=== PATIENT | female | born 1965 | race Caucasian/White ===

== ENCOUNTER 2023-11-29 12:25 | Inpatient (IN) ==
[2023-11-29] MEDS: SODIUM CHLORIDE 0.9% 1,000 ML IV ONE (12:43)
[2023-11-29 13:15] LABS: Basophils # (auto) 0.04 K/uL (0.00-0.20); Basophils % (auto) 0.3 %; Eosinophils # (auto) 0.09 K/uL (0.00-0.50); Eosinophils % (auto) 0.8 %; Hematocrit (blood only) 47.3 % (37.0-47.0); Hemoglobin 16.3 g/dl (12.0-16.0); Immature Granulocytes # (auto) 0.05 K/uL (0.01-0.20); Immature Granulocytes % (auto) 0.4 %; Lymphocytes # (auto) 3.29 K/uL (1.20-3.40); Mean Corpuscular Hemoglobin 29.2 pg (25.0-34.0); Mean Corpuscular Hgb Conc 34.5 g/dL (32.0-36.0); Mean Corpuscular Volume 84.6 fL (80.0-100.0); Mean Platelet Volume 10.1 fL (9.4-12.4); Monocytes % (auto) 7.7 %; Neutrophils # (auto) 7.38 K/uL (1.40-6.50); Neutrophils % (auto) 62.8 %; Platelet Count 285 K/uL (130-400); RDW Coefficient of Variation 13.6 % (11.5-14.5); RDW Standard Deviation 41.6 fL (36.4-46.3); Red Blood Count 5.59 M/uL (4.20-5.40); White Blood Count 11.75 K/ul (4.8-10.8)
--- NOTE | 2023-11-29 13:20 | Emergency Department Note ---
Impression & Plan Pericarditis, Elevated troponin, Bronchitis, Chest pain ED Provider Note NAME: DAIANA LEAL AGE: 58 SEX: F : 1965 ARRIVES VIA: Ambulance INFORMANT: Patient ED PROVIDER(S): Meek Woody MD CHIEF COMPLAINT: Chest pain, cough PLAN: Disposition: Admit MEDICAL DECISION MAKING: The patient is a pleasant 58-year-old woman who presents to the emergency department via EMS for evaluation of chest pain in the setting of having cough, congestion began on Tuesday. 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 She denies any known sick contacts but admits she is at risk for exposures. She reports feeling nasal congestion. She reports constant chest pain that began this morning when she was at work when she was sitting. She reports that it has felt like a burning and is worse when she lay flat. She does report some worsening with cough and breathing. Does report feeling component of pain last night when she was sleeping where she felt burning and fullness in her throat which she suspected was acid reflux. She denies any personal or family history of blood clots. She denies any pattern of exertional chest pain prior to her symptoms. Patient did receive 324 mg of aspirin by EMS prior to arrival. On my evaluation the patient is uncomfortable but no acute distress, afebrile with blood pressure 170/100 and vital signs otherwise stable. She appears clinically dry. She has wheezes and rhonchi of bilateral lung rene with normal respiratory effort. She has component of reproducible chest discomfort on palpation though she feels this is different from the pain that brought her in. EKG without overt acute ischemia. CXR negative for acute cardiopulmonary process per my personal preliminary review/interpretation. WBC 11.7 K with mild neutrophilia but no left shift, nonspecific. Hemoglobin and hematocrit are 16.3/47.3 possibly reflecting component of hemoconcentration/dehydration. Chemistry without metabolic acidosis. BUN/creatinine 30 suggestive of dehydration. Initial high-sensitivity troponin was elevated at 824 with delta 2-hour high-sensitivity troponin 912, nonspecific. Lipase not elevated. Respiratory viral consuls BioFire was negative. CTA of the chest was performed and was negative for PE or focal consolidation. There are borderline enlarged mediastinal lymph nodes measuring 10 mm in the paratracheal distribution. There is no pericardial effusion. Upon evaluation the patient did feel significant improved following IV fluid hydration, IV APAP, Toradol, guaifenesin, Solu-Medrol and DuoNeb. She reported complete resolution of her pain. The nature of her symptoms occur in setting of respiratory illness/bronchitis suspect troponin elevation likely related to pericarditis/myocarditis. Patient was given full dose aspirin by EMS prior to arrival. Given the patient reports resolution of her pain we will defer heparin at this time. Case discussed with Rick Decker PAC, with Dr. Sergio Cabrera hospitalist who will evaluate the patient for admission. Further management per admitting team. Triage Nursing notes reviewed and agree them. Prior/external medical records reviewed Vital Signs: reviewed Differential diagnosis: Cardiac ischemia, aortic dissection, pulmonary embolism, pneumothorax, pneumonia, pericarditis, myocarditis, esophageal rupture, GERD, cholecystitis, pancreatitis, musculoskeletal, as well as other pathologies. ER treatment provided: See below. Diagnostics interpreted by me: ECG: Normal sinus rhythm with sinus arrhythmia, 78 bpm, no ectopy, no overt ST elevation or depression, QTc 440, QRS 76. Cardiac Monitoring: An order for continuous cardiac monitoring was placed and demonstrated Normal sinus rhythm with sinus arrhythmia, 78 bpm, no ectopy. Laboratory studies: See below Imaging studies: See below Consultation(s): Rick Decker, with Dr. Sergio gomez HPI: The patient is a pleasant 58-year-old woman who presents to the emergency department via EMS for evaluation of chest pain in the setting of having cough, congestion began on Tuesday. 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 She denies any known sick contacts but admits she is at risk for exposures. She reports feeling nasal congestion. She reports constant chest pain that began this morning when she was at work when she was sitting. She reports that it has felt like a burning and is worse when she lay flat. She does report some worsening with cough and breathing. Does report feeling component of pain last night when she was sleeping where she felt burning and fullness in her throat which she suspected was acid reflux. She denies any personal or family history of blood clots. She denies any pattern of exertional chest pain prior to her symptoms. Patient did receive 324 mg of aspirin by EMS prior to arrival. ROS: See above HPI for pertinent positives & negatives. A total of 10 systems reviewed and were otherwise negative. VITALS:See Below PHYSICAL EXAMINATION: GENERAL: Awake, alert, fatigued-appearing, in no distress, BMI 33.5. HENT: Normocephalic, atraumatic. Oropharynx with dry mucous membranes and otherwise unremarkable. . EYES: Normal conjunctiva. Sclera non-icteric. NECK: Supple. No nuchal rigidity. FROM. No JVD. RESPIRATORY: Wheezes and rhonchi of bilateral lung rene with normal respiratory effort. CARDIAC: Regular rate, normal rhythm. Extremities warm and well perfused. Pulses equal. ABDOMEN: Soft, non-distended. No tenderness to palpation. No rebound or guarding. No masses. MUSCULOSKELETAL: Component of reproducible chest discomfort on palpation though she feels this is different from the pain that brought her in. The back is symmetrical on inspection without obvious abnormality. There is no CVA tenderness to palpation. No joint edema. LOWER EXTREMITIES: Calves are equal size bilaterally and non-tender. No edema. No discoloration. NEURO: Normal sensorium. No sensory or motor deficits noted. SKIN: No rash or jaundice noted. Critical Care: I have personally spent greater than 35 minutes of critical care time in the direct management of this patient. This includes bedside care, interpretation of diagnostic studies, and testing, discussion with consultants, patient, and family members, and other required patient management activities. This 35 minutes is in excess of all separately billable procedures. Meek Woody MD Past Med/Surg History Problem List (Updated 11/29/23 @ 23:47 by Meek Woody MD) Chest pain (Acute) Bronchitis (Acute) NSTEMI (non-ST elevated myocardial infarction) Elevated troponin (Acute) Pericarditis (Acute) Tobacco use disorder Hyperlipidemia Surgical History H/O foot surgery Family History Other Breast cancer Heart disease Ovarian cancer Social History Smoking Status: Current every day smoker Tobacco Type: Cigarettes packs per day: 1; Do You Dip or Chew Tobacco: No; Hx Alcohol Use: Yes Alcohol type: beer Hx Substance Use: Yes Last Used Substance: Days (ago) Preferred Language: Tajik Communication Ability: Effective Election Watcher Required: No Beliefs That Will Affect Care: None Current Living Situation: Significant Other Current Living Situation Comment: with Mike Solorzano Other Information That Helps Us Care for You: No Feels Safe at Home: Yes Safety Concerns: Feels Safe At This Time Assistive Devices: None Allergies Allergies Allergy/AdvReac Type Severity Reaction Status Date / Time No Known Allergies Allergy Verified 11/29/23 15:19 Home Meds Home Medications Medication Instructions Recorded Confirmed acetaminophen 500 mg tablet 1,000 mg PO Q6H PRN Pain 11/29/23 11/29/23 (Tylenol Extra Strength) ibuprofen 200 mg tablet 600 - 800 mg PO Q6H PRN Pain 11/29/23 11/29/23 naproxen sodium 220 mg tablet 220 mg PO Q8H PRN Pain 11/29/23 11/29/23 (Aleve) tizanidine 2 mg tablet 2 mg PO DIRECTED PRN MUSCLE 11/29/23 11/29/23 SPASMS Results & Data (ED) Vital Signs Vital Signs - 24 hr 11/29/23 12:35 11/29/23 13:08 11/29/23 13:08 Temperature 36.8 C Temperature Source Oral Pulse Rate 67 80 Pulse Rate [Apical] 87 Pulse Rate from SpO2 Sensor Respiratory Rate 17 23 24 Respiratory Effort / Characteristics Non-Labored Spontaneous Spontaneous Respiratory Depth Normal Normal Respiratory Pattern Regular Blood Pressure 171/106 H Blood Pressure [Right Arm] 165/94 H Blood Pressure Mean 127 Blood Pressure Mean [Right Arm] 117 Blood Pressure Position [Right Arm] Semi-fowlers Pulse Oximetry 98 98 99 Oxygen Delivery Method Room Air Room Air Room Air Sepsis Recent Fever Within 48 Hours No Sepsis New/Unexplained Change in Mental Status N/A Sepsis Action Taken by Nursing No Action Required 11/29/23 13:10 11/29/23 13:11 11/29/23 13:45 Temperature Temperature Source Pulse Rate 82 78 Pulse Rate [Apical] Pulse Rate from SpO2 Sensor Respiratory Rate 18 Respiratory Effort / Characteristics Respiratory Depth Respiratory Pattern Blood Pressure 186/120 H Blood Pressure [Right Arm] Blood Pressure Mean 139 Blood Pressure Mean [Right Arm] Blood Pressure Position [Right Arm] Pulse Oximetry Oxygen Delivery Method Sepsis Recent Fever Within 48 Hours Sepsis New/Unexplained Change in Mental Status Sepsis Action Taken by Nursing 11/29/23 14:14 11/29/23 14:21 11/29/23 14:33 Temperature Temperature Source Pulse Rate 85 79 Pulse Rate [Apical] 76 Pulse Rate from SpO2 Sensor 80 78 Respiratory Rate 17 24 17 Respiratory Effort / Characteristics Non-Labored Spontaneous Respiratory Depth Normal Respiratory Pattern Regular Blood Pressure Blood Pressure [Right Arm] 168/99 H Blood Pressure Mean Blood Pressure Mean [Right Arm] 122 Blood Pressure Position [Right Arm] Semi-fowlers Pulse Oximetry 95 95 95 Oxygen Delivery Method Room Air Sepsis Recent Fever Within 48 Hours Sepsis New/Unexplained Change in Mental Status Sepsis Action Taken by Nursing 11/29/23 15:09 11/29/23 15:33 11/29/23 16:06 Temperature Temperature Source Pulse Rate 73 71 72 Pulse Rate [Apical] Pulse Rate from SpO2 Sensor 70 73 75 Respiratory Rate 15 20 22 Respiratory Effort / Characteristics Respiratory Depth Respiratory Pattern Blood Pressure Blood Pressure [Right Arm] Blood Pressure Mean Blood Pressure Mean [Right Arm] Blood Pressure Position [Right Arm] Pulse Oximetry 95 95 94 Oxygen Delivery Method Sepsis Recent Fever Within 48 Hours Sepsis New/Unexplained Change in Mental Status Sepsis Action Taken by Nursing 11/29/23 16:30 11/29/23 17:03 Temperature Temperature Source Pulse Rate 81 83 Pulse Rate [Apical] Pulse Rate from SpO2 Sensor 84 84 Respiratory Rate 16 19 Respiratory Effort / Characteristics Respiratory Depth Respiratory Pattern Blood Pressure Blood Pressure [Right Arm] Blood Pressure Mean Blood Pressure Mean [Right Arm] Blood Pressure Position [Right Arm] Pulse Oximetry 95 95 Oxygen Delivery Method Sepsis Recent Fever Within 48 Hours Sepsis New/Unexplained Change in Mental Status Sepsis Action Taken by Nursing Laboratory Data Attestation: I reviewed the patient's lab results. 11/29/23 12:40 11/29/23 12:40 Lab Results 11/29/23 11/29/23 11/29/23 Range/Units 12:40 12:45 12:45 WBC 11.75 H (4.8-10.8) K/ul RBC 5.59 H (4.20-5.40) M/uL Hgb 16.3 H (12.0-16.0) g/dl Hct 47.3 H (37.0-47.0) % MCV 84.6 (80.0-100.0) fL MCH 29.2 (25.0-34.0) pg MCHC 34.5 (32.0-36.0) g/dL RDW Std Deviation 41.6 (36.4-46.3) fL RDW Coeff of Dontae 13.6 (11.5-14.5) % Plt Count 285 (130-400) K/uL MPV 10.1 (9.4-12.4) fL Immature Gran % (Auto) 0.4 % Neut % (Auto) 62.8 % Lymph % (Auto) 28.0 % Gilmer % (Auto) 7.7 % Eos % (Auto) 0.8 % Baso % (Auto) 0.3 % Neut # (Auto) 7.38 H (1.40-6.50) K/uL Lymph # (Auto) 3.29 (1.20-3.40) K/uL Gilmer # (Auto) 0.90 H (0.11-0.59) K/uL Eos # (Auto) 0.09 (0.00-0.50) K/uL Baso # (Auto) 0.04 (0.00-0.20) K/uL Immature Gran # (Auto) 0.05 (0.01-0.20) K/uL ESR 33 H (0-30) mm/hr PT 10.8 (9.0-12.0) Seconds INR 1.0 (0.9-1.1) Sodium 137 (136-145) mmol/L Potassium 3.6 (3.5-5.1) mmol/L Chloride 102 (98-107) mmol/L Carbon Dioxide 27 (21-32) mmol/L Anion Gap 8 (3-11) BUN 16 (6-23) mg/dl Creatinine 0.52 L (0.6-1.2) mg/dl Est Cr Clr Drug Dosing 130.9 ml/min Est GFR ( Amer) 123.8 ml/min Est GFR (Non-Af Amer) 106.8 ml/min BUN/Creatinine Ratio 30.8 H (10-20) Glucose 98 (70-99(Fasting)) mg/dl Calcium 9.7 (8.6-10.3) mg/dl Magnesium 2.2 (1.7-2.4) mg/dl Total Bilirubin 0.6 (0.2-1.0) mg/dl AST 22 (13-39) U/L ALT 22 (7-52) U/L Alkaline Phosphatase 69 (34-104) U/L Troponin I High Sens 824.7 H* (0-14) pg/ml C-Reactive Protein (0-0.5) mg/dl Total Protein 7.6 (6.0-8.3) gm/dl Albumin 4.5 (3.4-5.0) gm/dl Globulin 3.1 (2.5-4.0) gm/dl Albumin/Globulin Ratio 1.5 (0.9-2) Lipase 6 L (11-82) U/L TSH (0.300-4.500) uIu/ml Adenovirus (PCR) Not Detected (NotDetected) B. pertussis DNA (PCR) Not Detected (NotDetected) B.parapertussis DNA PCR Not Detected (NotDetected) C. pneumoniae DNA (PCR) Not Detected (NotDetected) Coronavirus OC43 (PCR) Not Detected (NotDetected) Coronavirus HKU1 (PCR) Not Detected (NotDetected) Coronavirus 229E (PCR) Not Detected (NotDetected) SARS-CoV-2 (PCR) NEGATIVE Not Detected (Negative) Coronavirus NL63 (PCR) Not Detected (NotDetected) Human Metapneumovir PCR Not Detected (NotDetected) Influenza Type A (PCR) Negative (Neg) Influenza Type B (PCR) (Neg) M. pneumoniae (PCR) (NotDetected) Parainfluenza 1 (PCR) (NotDetected) Parainfluenza 2 (PCR) (NotDetected) Parainfluenza 3 (PCR) (NotDetected) Parainfluenza 4 (PCR) (NotDetected) RSV (RT-PCR) (Neg) RSV (PCR) (NotDetected) Entero/Rhino (PCR) (NotDetected) 11/29/23 11/29/23 11/29/23 Range/Units 12:45 12:45 14:37 WBC (4.8-10.8) K/ul RBC (4.20-5.40) M/uL Hgb (12.0-16.0) g/dl Hct (37.0-47.0) % MCV (80.0-100.0) fL MCH (25.0-34.0) pg MCHC (32.0-36.0) g/dL RDW Std Deviation (36.4-46.3) fL RDW Coeff of Dontae (11.5-14.5) % Plt Count (130-400) K/uL MPV (9.4-12.4) fL Immature Gran % (Auto) % Neut % (Auto) % Lymph % (Auto) % Gilmer % (Auto) % Eos % (Auto) % Baso % (Auto) % Neut # (Auto) (1.40-6.50) K/uL Lymph # (Auto) (1.20-3.40) K/uL Gilmer # (Auto) (0.11-0.59) K/uL Eos # (Auto) (0.00-0.50) K/uL Baso # (Auto) (0.00-0.20) K/uL Immature Gran # (Auto) (0.01-0.20) K/uL ESR (0-30) mm/hr PT (9.0-12.0) Seconds INR (0.9-1.1) Sodium (136-145) mmol/L Potassium (3.5-5.1) mmol/L Chloride (98-107) mmol/L Carbon Dioxide (21-32) mmol/L Anion Gap (3-11) BUN (6-23) mg/dl Creatinine (0.6-1.2) mg/dl Est Cr Clr Drug Dosing ml/min Est GFR ( Amer) ml/min Est GFR (Non-Af Amer) ml/min BUN/Creatinine Ratio (10-20) Glucose (70-99(Fasting)) mg/dl Calcium (8.6-10.3) mg/dl Magnesium (1.7-2.4) mg/dl Total Bilirubin (0.2-1.0) mg/dl AST (13-39) U/L ALT (7-52) U/L Alkaline Phosphatase (34-104) U/L Troponin I High Sens 912.3 H* (0-14) pg/ml C-Reactive Protein 1.18 H (0-0.5) mg/dl Total Protein (6.0-8.3) gm/dl Albumin (3.4-5.0) gm/dl Globulin (2.5-4.0) gm/dl Albumin/Globulin Ratio (0.9-2) Lipase (11-82) U/L TSH 2.569 (0.300-4.500) uIu/ml Adenovirus (PCR) (NotDetected) B. pertussis DNA (PCR) (NotDetected) B.parapertussis DNA PCR (NotDetected) C. pneumoniae DNA (PCR) (NotDetected) Coronavirus OC43 (PCR) (NotDetected) Coronavirus HKU1 (PCR) (NotDetected) Coronavirus 229E (PCR) (NotDetected) SARS-CoV-2 (PCR) (Negative) Coronavirus NL63 (PCR) (NotDetected) Human Metapneumovir PCR (NotDetected) Influenza Type A (PCR) Not Detected (Neg) Influenza Type B (PCR) Negative Not Detected (Neg) M. pneumoniae (PCR) Not Detected (NotDetected) Parainfluenza 1 (PCR) Not Detected (NotDetected) Parainfluenza 2 (PCR) Not Detected (NotDetected) Parainfluenza 3 (PCR) Not Detected (NotDetected) Parainfluenza 4 (PCR) Not Detected (NotDetected) RSV (RT-PCR) Negative (Neg) RSV (PCR) Not Detected (NotDetected) Entero/Rhino (PCR) Not Detected (NotDetected) Administered Medications Acetaminophen (Acetaminophen 500 Mg Tab) 1,000 mg PO Q8 [facility] Stop: 12/29/23 21:59 Last Admin: 11/29/23 21:06 Dose: 1,000 mg Documented By: EUSEBIO Atorvastatin Calcium (Atorvastatin 40 Mg Tab) 40 mg PO QAM [facility] Stop: 12/29/23 19:14 Last Admin: 11/29/23 19:16 Dose: Not Given Documented By: CHET Heparin Sodium/Dextrose (Heparin Sodium/Dextrose) 25,000 units in 500 mls @ 25 mls/hr IV .Q20H [facility]; Protocol Stop: 12/29/23 18:59 Last Admin: 11/29/23 19:17 Dose: 1,250 units/hr, 25 mls/hr Documented By: CHET Co-signed By: DEISI Pantoprazole Sodium 40 mg/ (Syringe) 10 mls @ 5 mls/min IV BID [facility] Stop: 12/29/23 20:59 Last Admin: 11/29/23 21:24 Dose: 5 mls/min Documented By: EUSEBIO Sodium Chloride (Nss) 1,000 mls @ 75 mls/hr IV .[id number] [facility] Stop: 12/29/23 19:59 Last Admin: 11/29/23 20:33 Dose: 75 mls/hr Documented By: EUSEBIO Nitroglycerin (Nitroglycerin 2% Ointment 30gm Tube) 0.5 inch EXT Q6H [facility] Stop: 12/29/23 18:44 Last Admin: 11/29/23 19:08 Dose: 0.5 inch Documented By: CHET Discontinued Medications Al Hydrox/Mg Hydrox/Simethicone (Aluminum/Magnesium Susp 30 Ml Udc) 30 ml PO NOW STA Stop: 11/29/23 16:47 Last Admin: 11/29/23 16:55 Dose: 30 ml Documented By: CHET Albuterol (Albut/Ipratrop 3mg/0.5mg Neb 3 Ml Vial) 3 ml NEB NOW STA; Protocol Stop: 11/29/23 13:33 Last Admin: 11/29/23 17:08 Dose: Not Given Documented By: CHET Albuterol (Albut/Ipratrop 3mg/0.5mg Neb 3 Ml Vial) 3 ml NEB NOW STA; Protocol Stop: 11/29/23 17:03 Last Admin: 11/29/23 17:05 Dose: 3 ml Documented By: CHET Guaifenesin (Guaifenesin 600 Mg Tabcr) 1,200 mg PO NOW STA Stop: 11/29/23 13:32 Last Admin: 11/29/23 13:52 Dose: Not Given Documented By: SEVEN Heparin Sodium/Dextrose (Heparin Iv Adult Wt-Based Standard *No* Initial Bolus Protocol) 1 each IV ONE STA; Protocol Stop: 11/29/23 18:36 Last Admin: 11/29/23 19:19 Dose: Not Given Documented By: CHET Sodium Chloride (Nss) 1,000 mls @ 999 mls/hr IV .Q1H1M ONE Stop: 11/29/23 13:37 Last Infusion: 11/29/23 14:48 Dose: Infused Documented By: Admin: 11/29/23 12:43 Dose: 999 mls/hr Documented By: HERMES Famotidine (Pepcid 20mg Iv Push) 20 mg in 5 mls @ 2.5 mls/min IV NOW STA Stop: 11/29/23 13:32 Last Admin: 11/29/23 13:47 Dose: 2.5 mls/min Documented By: SEVEN Acetaminophen (Ofirmev) 1,000 mg in 100 mls @ 400 mls/hr IV NOW STA Stop: 11/29/23 13:45 Last Infusion: 11/29/23 14:47 Dose: Infused Documented By: Admin: 11/29/23 13:54 Dose: 400 mls/hr Documented By: SEVEN Pantoprazole Sodium 40 mg/ (Syringe) 10 mls @ 5 mls/min IV NOW STA Stop: 11/29/23 18:42 Last Admin: 11/29/23 19:09 Dose: 5 mls/min Documented By: CHET Ioversol (Optiray 320 125ml) 119 ml IV ONCE ONE Stop: 11/29/23 14:03 Last Admin: 11/29/23 14:02 Dose: 119 ml Documented By: NEREIDA Ketorolac Tromethamine (Ketorolac Tromethamine 15 Mg/Ml Vial) 15 mg IV NOW STA Stop: 11/29/23 13:31 Last Admin: 11/29/23 13:42 Dose: 15 mg Documented By: SEVEN Ketorolac Tromethamine (Ketorolac Tromethamine 15 Mg/Ml Vial) 15 mg IV NOW STA Stop: 11/29/23 16:46 Last Admin: 11/29/23 16:55 Dose: 15 mg Documented By: CHET Methylprednisolone (Methylprednisolone 125 Mg/2 Ml Vial) 125 mg IV NOW STA Stop: 11/29/23 13:31 Last Admin: 11/29/23 13:45 Dose: 125 mg Documented By: SEVEN Metoprolol Tartrate (Metoprolol Tartrate 25 Mg Tab) 25 mg PO ONE ONE Stop: 11/29/23 18:39 Last Admin: 11/29/23 19:09 Dose: 25 mg Documented By: CHET Nitroglycerin (Nitroglycerin Sl 0.4 Mg/Tab Tab) 0.4 mg SL NOW STA Stop: 11/29/23 18:04 Last Admin: 11/29/23 18:07 Dose: 0.4 mg Documented By: CHET Sodium Chloride (Sodium Chloride 0.65% Na Soln 45 Ml ([place])) 2 sprays NA NOW ONE Stop: 11/29/23 13:34 Last Admin: 11/29/23 13:50 Dose: Not Given Documented By: SEVEN Imaging Data Radiologist's Impression: Chest X-Ray 11/29/23 12:37 XR chest 1V portable HISTORY: 58 years-old Female Chest pain, nonspecific COMPARISON: None TECHNIQUE: AP view of the chest FINDINGS: Cardiomediastinal and hilar silhouettes are within normal limits. No pneumothorax, pleural effusion, airspace consolidation or pulmonary edema. Bones of the chest appear grossly intact. IMPRESSION: No acute process. ACT 112: Negative or not required by law. The above report was generated using voice recognition software. It may contain grammatical, syntax or spelling errors. Electronically signed by: Srinivasa Simeon M.D. 11/29/2023 1:29 PM Chest CTA 11/29/23 13:32 CT angio chest PE protocol CT DOSE: 845.62 mGy.cm HISTORY: 58 years-old Female with cp, sob, r/o pe. Acute chest pain or shortness of breath TECHNIQUE: Multiple CTA images of the chest were obtained after the intravenous administration of 119 ml Optiray. Coronal and sagittal MIPS were obtained from the axial data set and were submitted for review. All measurements were obtained according to NASCET criteria. A dose lowering technique was utilized adhering to the principles of ALARA. COMPARISON: Chest radiograph of same day FINDINGS: CTA: Heart is normal in size without pericardial effusion. Mild coronary artery calcifications. Unremarkable thoracic aorta. No pulmonary emboli identified. Suboptimal evaluation of the segmental and subsegmental branches secondary to respiratory motion artifact and contrast bolus timing. CT CHEST: Unremarkable thyroid. There are a few borderline enlarged mediastinal lymph nodes measuring up to 10 mm in the paratracheal distributions. Moderate bronchial wall thickening. Small right apical pulmonary blebs. No pneumothorax, pleural effusion, airspace consolidation or pulmonary edema. Mild subsegmental bibasilar atelectasis. There are no suspicious pulmonary nodules or masses identified. Hepatic steatosis with hepatomegaly. No acute upper abdominal abnormality. No acute fracture. IMPRESSION: 1. No pulmonary emboli. 2. Bronchial wall thickening may represent bronchitis or reactive airway disease. 3. Borderline enlarged mediastinal lymph nodes, likely reactive. 4. Hepatic steatosis. 5. Mild coronary artery calcifications. ACT 112: Negative or not required by law. The above report was generated using voice recognition software. It may contain grammatical, syntax or spelling errors. Electronically signed by: Srinivasa Simeon M.D. 11/29/2023 3:10 PM Discharge Plan Visit Data Chief Complaint: Chest Pain Stated Complaint: CHEST PAIN ED Provider: Meek Woody Discharge Problem: Pericarditis, Elevated troponin, Bronchitis, Chest pain Discharge Problem: Pericarditis Qualifiers: Pericarditis type: unspecified type Chronicity: acute Qualified Code(s): I30.9 - Acute pericarditis, unspecified Chest pain Qualifiers: Chest pain type: unspecified Qualified Code(s): R07.9 - Chest pain, unspecified
[2023-11-29 13:24] LABS: Albumin Globulin Ratio 1.5 (0.9-2); Albumin Level 4.5 gm/dl (3.4-5.0); BUN Creatinine Ratio 30.8 (10-20); Bilirubin,Total 0.6 mg/dl (0.2-1.0); Calcium 9.7 mg/dl (8.6-10.3); Creatinine Clr Calc Pharmacy 130.9 ml/min; Est GFR (African American) 123.8 ml/min; Est GFR (Non-African American) 106.8 ml/min; Globulin 3.1 gm/dl (2.5-4.0); Magnesium 2.2 mg/dl (1.7-2.4); Potassium 3.6 mmol/L (3.5-5.1); Total Protein 7.6 gm/dl (6.0-8.3)
[2023-11-29 13:29] LABS: Prothrombin Time 10.8 Seconds (9.0-12.0)
--- NOTE | 2023-11-29 13:31 | XRay Report ---
XR chest 1V portable HISTORY: 58 years-old Female Chest pain, nonspecific COMPARISON: None TECHNIQUE: AP view of the chest FINDINGS: Cardiomediastinal and hilar silhouettes are within normal limits. No pneumothorax, pleural effusion, airspace consolidation or pulmonary edema. Bones of the chest appear grossly intact. IMPRESSION: No acute process. ACT 112: Negative or not required by law. The above report was generated using voice recognition software. It may contain grammatical, syntax o r spelling errors. Electronically signed by: Srinivasa Simeon M.D. 11/29/2023 1:29 PM
[2023-11-29 13:33] LABS: Troponin I High Sensitivity 824.7 pg/ml (0-14)
[2023-11-29] MEDS: KETOROLAC TROMETHAMINE 15 MG/ML VIAL IV STA ×2 (13:42→16:55)
[2023-11-29] MEDS: methylPREDNISolone 125 MG/2 ML VIAL IV STA (13:45)
[2023-11-29] MEDS: FAMOTIDINE 20MG IV PUSH 20 MG/5 ML SYR IV STA (13:47)
[2023-11-29] MEDS: guaiFENesin 600 MG TABCR PO STA (13:50)
[2023-11-29] MEDS: SODIUM CHLORIDE 0.65% NA SOLN 45 ML (OCEAN) ONE (13:50)
[2023-11-29] MEDS: ACETAMINOPHEN 1,000 MG/100 ML VIAL IV STA (13:54)
[2023-11-29] MEDS: OPTIRAY 320 125ml IV ONE (14:02)
[2023-11-29 14:03] LABS: Influenza A virus by PCR Negative (Neg); Influenza B virus by PCR Negative (Neg); RSV by PCR Negative (Neg); SARS CoV2 RNA(COVID-19) Ceph NEGATIVE (Negative)
--- NOTE | 2023-11-29 15:11 | CT Scan Report ---
CT angio chest PE protocol CT DOSE: 845.62 mGy.cm HISTORY: 58 years-old Female with cp, sob, r/o pe. Acute chest pain or shortness of breath TECHNIQUE: Multiple CTA images of the chest were obtained after the intravenous administration of 119 ml Optiray. Coronal and sagittal MIPS were obtained from the axial data set and were submitted for review. All measurements were obtained according to NASCET criteria. A dose lowering technique was u tilized adhering to the principles of ALARA. COMPARISON: Chest radiograph of same day FINDINGS: CTA: Heart is normal in size without pericardial effusion. Mild coronary artery calcifications. Unremarkab le thoracic aorta. No pulmonary emboli identified. Suboptimal evaluation of the segmental and subsegm ental branches secondary to respiratory motion artifact and contrast bolus timing. CT CHEST: Unremarkable thyroid. There are a few borderline enlarged mediastinal lymph nodes measuring up to 10 mm in the paratracheal distributions. Moderate bronchial wall thickening. Small right apical pulmonar y blebs. No pneumothorax, pleural effusion, airspace consolidation or pulmonary edema. Mild subsegmen el bibasilar atelectasis. There are no suspicious pulmonary nodules or masses identified. Hepatic steatosis with hepatomegaly. No acute upper abdominal abnormality. No acute fracture. IMPRESSION: 1. No pulmonary emboli. 2. Bronchial wall thickening may represent bronchitis or reactive airway disease. 3. Borderline enlarged mediastinal lymph nodes, likely reactive. 4. Hepatic steatosis. 5. Mild coronary artery calcifications. ACT 112: Negative or not required by law. The above report was generated using voice recognition software. It may contain grammatical, syntax o r spelling errors. Electronically signed by: Srinivasa Simeon M.D. 11/29/2023 3:10 PM
[2023-11-29 15:27] LABS: Troponin I High Sensitivity 912.3 pg/ml (0-14)
[2023-11-29 16:47] LABS: Adenovirus PCR Not Detected (NotDetected); Bordetella parapertussis PCR Not Detected (NotDetected); Bordetella pertussis PCR Not Detected (NotDetected); Chlamydia pneumoniae PCR Not Detected (NotDetected); Coronavirus 229E PCR Not Detected (NotDetected); Coronavirus CoV-2 (COVID19)PCR Not Detected (NotDetected); Coronavirus HKU1 PCR Not Detected (NotDetected); Coronavirus NL63 PCR Not Detected (NotDetected); Coronavirus OC43PCR Not Detected (NotDetected); Human Metapneumovirus PCR Not Detected (NotDetected); Influenza A PCR Not Detected (NotDetected); Influenza B PCR Not Detected (NotDetected); Mycoplasma pneumoniae PCR Not Detected (NotDetected); Parainfluenza Virus 1 PCR Not Detected (NotDetected); Parainfluenza Virus 2 PCR Not Detected (NotDetected); Parainfluenza Virus 3 PCR Not Detected (NotDetected); Parainfluenza Virus 4 PCR Not Detected (NotDetected); Respiratory Syncytial VirusPCR Not Detected (NotDetected); Rhinovirus/Enterovirus PCR Not Detected (NotDetected)
[2023-11-29] MEDS: ALUMINUM/MAGNESIUM SUSP 30 ML UDC PO STA (16:55)
[2023-11-29] MEDS: ALBUT/IPRATROP 3MG/0.5MG NEB 3 ML VIAL NEB STA ×2 (17:05→17:08)
--- NOTE | 2023-11-29 17:14 | History & Physical Report ---
Date of Service November 29, 2023 Assessment & Plan (1) NSTEMI (non-ST elevated myocardial infarction): Plan: This is a 58yo F with a PMH of dyslipidemia, tobacco use disorder who presents with burning CP x 3 days. Initial concern for pericarditis given burning CP x 3 days following URI symptoms, pain worse when laying down flat However developed higher suspicion for NSTEMI given evolving pain from burning R side to substernal tightness and indigestion, HS troponin 824.7 -> 912.3 Risk factors : BMI, 1 ppd smoker, hyperlipidemia not on statin EKG reviewed NSR with sinus arrhythmia. Repeat EKG with some non-specific T wave flattening of anteroseptal leads on repeat EKG around 1830. No acute ST changes Chest CTA with no PE or pericardial effusion Pain initially resolved when given toradol, tylenol pepcid, GI cocktail all at once in ED but then recurred 1.5 hours later, resolved again after sublingual ntg Discussed case with Dr. Banuelos who feels given risk factors and nature of pain returning after NSAIDs, its reasonable to treat for NSTEMI for now Inflammatory markers not as elevated as expected with CRP 1.818, ESR 33 given trop elevation Starting IV heparin, Lopressor 25mg x 1 now, 25mg BID in AM, atorvastatin 40mg, GI ppx Scheduled tylenol, PRN IV morphine for severe pain. Discontinue further NSAIDs at this time Cardiology consulted 2D echo, repeat EKG in AM, NPO after midnight (2) Tobacco use disorder: Plan: Interested in smoking cessation. Continue counseling during admission (3) Bronchitis: Plan: Viral symptoms last week Resp viral panel today negative Bronchial wall thickening may represent bronchitis vs. reactive airway disease Cont PRN nebs, PRN Mucinex (4) Hyperlipidemia: Plan: Dx as outpatient, not on a statin at home but started this evening DVT Ppx: IV heparin Code status: FULL PCP: [facility] Dispo: Admitted to PCU Patient seen in collaboration with Dr. Hill. Please see addendum. I spent a total of 75 minutes coordinating, documenting, and providing care for this patient excluding time spent in the performance of separately billed services. History of Present Illness Chief Complaint: CP Primary Care Provider: NO PCP This is a 58yo F with a PMH of dyslipidemia, tobacco use disorder who presents with burning CP x 3 days. Developed cough, congestion and rhinorrhea 6 days ago that felt like a cold. Never had a fever. By Tuesday evening, patient started to have chest wall pain with coughing and felt poorly enough yesterday to leave work. Was instructed to head to [facility] ED but felt too tired and drove home instead, sleeping the rest of the day. When she woke up today, pain was still burning and worse with coughing and laying down flat but also endorsed indigestion and tight components of it as well, prompting her to call EMS. Received full dose aspirin en route to ED. Upon arrival, was given toradol, tylenol pepcid, GI cocktail all at once which completely relieved pain for a few hours. Upon re-evaluation by our service, chest pain had recurred in same location of mid-sternum. + dull headache. Denies fever, chills, lightheadedness, SOB, N/V, abd pain, dysuria, diarrhea or constipation. Breathing has improved since albuterol nebs in ED but denies ever feeling SOB. Mixed hyperlipidemia on outpatient problem list but states she was not instructed to start atorvastatin listed on her med list. Smokes 1 ppd cigarettes. Allergies Allergy/AdvReac Type Severity Reaction Status Date / Time No Known Allergies Allergy Verified 11/29/23 15:19 Home Medications Medication Instructions Recorded Confirmed Type acetaminophen 500 mg tablet 1,000 mg PO Q6H PRN Pain 11/29/23 11/29/23 History (Tylenol Extra Strength) ibuprofen 200 mg tablet 600 - 800 mg PO Q6H PRN Pain 11/29/23 11/29/23 History naproxen sodium 220 mg tablet 220 mg PO Q8H PRN Pain 11/29/23 11/29/23 History (Aleve) tizanidine 2 mg tablet 2 mg PO DIRECTED PRN MUSCLE 11/29/23 11/29/23 History SPASMS Past Med/Surg History Problem List (Updated 11/29/23 @ 19:38 by Meek Woody MD) Bronchitis (Acute) NSTEMI (non-ST elevated myocardial infarction) Elevated troponin (Acute) Pericarditis (Acute) Tobacco use disorder Hyperlipidemia Surgical History H/O foot surgery Family History Other Breast cancer Heart disease Ovarian cancer Social History Smoking Status: Current every day smoker packs per day: 1; Hx Substance Use: No Preferred Language: Macanese Feels Safe at Home: Yes Review of Systems Review of Systems: At least ten systems reviewed and negative except as noted in the HPI. Physical Exam Physical Exam: General Appearance: WD/WN, vitals as above, NAD, sitting up in bed, pleasant, conversing easily Head: normocephalic, atraumatic Eyes: normal inspection, PERRL, conjunctivae normal, anicteric sclerae ENT: external ear and nose normal, oropharynx normal Neck: normal visual inspection, trachea midline, no thyromegaly Respiratory: normal respiratory effort, lungs clear to auscultation, no wheeze, rales, rhonchi. No accessory muscle use Cardiovascular: regular rate, rhythm, no murmur or rub noted, normal peripheral pulses, no BLE edema. Vessels: no JVD Chest: normal inspection of chest Abdomen/GI: normal bowel sounds, soft, nontender, no hepatosplenomegaly Extremities/Musculoskeletal: no cyanosis or clubbing, extremities motor strength 5/5 Neurologic: PERRL, EOMI, accommodation nl, no face palsy, no dysarthria, CN's II-XI intact bilaterally and moves all extremities Psychiatric: A+Ox3, + tearful Skin: no rashes, normal color, warm/dry Results & Data Results & Data Vital Signs (Past 12 Hours) Vital Signs Temp Pulse Pulse Resp BP BP Pulse Ox 11/29/23 14:14 76 17 168/99 H 95 11/29/23 13:11 82 11/29/23 13:08 80 24 99 11/29/23 13:08 87 23 165/94 H 98 11/29/23 12:35 36.8 C 67 17 171/106 H 98 O2 Del Method 11/29/23 14:14 Room Air 11/29/23 13:11 11/29/23 13:08 Room Air 11/29/23 13:08 Room Air 11/29/23 12:35 Room Air Laboratory Results Short CBC 11/29/23 Range/Units 12:40 WBC 11.75 H (4.8-10.8) K/ul Hgb 16.3 H (12.0-16.0) g/dl Hct 47.3 H (37.0-47.0) % Plt Count 285 (130-400) K/uL BMP 11/29/23 12:40 Sodium 137 Potassium 3.6 Chloride 102 Carbon Dioxide 27 BUN 16 Creatinine 0.52 L Glucose 98 Calcium 9.7 Liver Function 11/29/23 Range/Units 12:40 Total Bilirubin 0.6 (0.2-1.0) mg/dl AST 22 (13-39) U/L ALT 22 (7-52) U/L Alkaline Phosphatase 69 (34-104) U/L Albumin 4.5 (3.4-5.0) gm/dl Diagnostic Findings Chest X-Ray 11/29/23 12:37 XR chest 1V portable HISTORY: 58 years-old Female Chest pain, nonspecific COMPARISON: None TECHNIQUE: AP view of the chest FINDINGS: Cardiomediastinal and hilar silhouettes are within normal limits. No pneumothorax, pleural effusion, airspace consolidation or pulmonary edema. Bones of the chest appear grossly intact. IMPRESSION: No acute process. ACT 112: Negative or not required by law. The above report was generated using voice recognition software. It may contain grammatical, syntax or spelling errors. Electronically signed by: Srinivasa Simeon M.D. 11/29/2023 1:29 PM Chest CTA 11/29/23 13:32 CT angio chest PE protocol CT DOSE: 845.62 mGy.cm HISTORY: 58 years-old Female with cp, sob, r/o pe. Acute chest pain or shortness of breath TECHNIQUE: Multiple CTA images of the chest were obtained after the intravenous administration of 119 ml Optiray. Coronal and sagittal MIPS were obtained from the axial data set and were submitted for review. All measurements were obtained according to NASCET criteria. A dose lowering technique was utilized adhering to the principles of ALARA. COMPARISON: Chest radiograph of same day FINDINGS: CTA: Heart is normal in size without pericardial effusion. Mild coronary artery calcifications. Unremarkable thoracic aorta. No pulmonary emboli identified. Suboptimal evaluation of the segmental and subsegmental branches secondary to respiratory motion artifact and contrast bolus timing. CT CHEST: Unremarkable thyroid. There are a few borderline enlarged mediastinal lymph nodes measuring up to 10 mm in the paratracheal distributions. Moderate bronchial wall thickening. Small right apical pulmonary blebs. No pneumothorax, pleural effusion, airspace consolidation or pulmonary edema. Mild subsegmental bibasilar atelectasis. There are no suspicious pulmonary nodules or masses identified. Hepatic steatosis with hepatomegaly. No acute upper abdominal abnormality. No acute fracture. IMPRESSION: 1. No pulmonary emboli. 2. Bronchial wall thickening may represent bronchitis or reactive airway disease. 3. Borderline enlarged mediastinal lymph nodes, likely reactive. 4. Hepatic steatosis. 5. Mild coronary artery calcifications. ACT 112: Negative or not required by law. The above report was generated using voice recognition software. It may contain grammatical, syntax or spelling errors. Electronically signed by: Srinivasa Simeon M.D. 11/29/2023 3:10 PM ECG Additional Comments: EKG reviewed NSR with sinus arrhythmia. Repeat EKG with some non-specific T wave flattening of anteroseptal leads on repeat EKG around 1830 Supervising Physician Co-Signing Physician Notes Attending Addendum: Case reviewed with the advanced practitioner. I have personally performed a history and physical examination on the patient. I have reviewed the advanced practitioner's documentation on the date of service referenced in note, and I agree with, and take responsibility for the plan of care. please refer to her notes for full details patient seen and examined, records reviewed by myself as well on exam, patient Seen resting in bed, still reporting persistent midsternal tightness, burning Given 1 dose of sublingual nitro, patient immediately felt relief with her chest discomfort No shortness of breath, dizziness, palpitations, does report frontal headache for 3 days now no other symptoms VS noted and reviewed oriented x 3, not in distress, speaks in sentences with no effort nor accessory muscle use normal rate, regular rhythm, no murmurs clear breath sounds bilaterally non distended, soft, nontender no bipedal edema, erythema, warmth no neuro deficits all labs, imaging noted and reviewed ASSESSMENT AND PLAN Chest pain, possible non-ST elevation MA Initial thought process was possible pericarditis however patient did not have any relief even after Solu-Medrol, Toradol IV, ESR 33 After 1 dose of sublingual nitro, chest pain immediately relieved Risk factors: 1 pack/day smoker, history of MA-maternal grandmother Troponin 800s, increased to 900s EKG showed some nonspecific T wave changes in the anteroseptal leads Heparin drip Metoprolol tartrate 25 mg p.o. Already received 324 mg of aspirin en route to the hospital Lipitor 40 mg p.o. daily Nitropaste N.p.o. postmidnight, possible cardiac cath tomorrow Case discussed with Dr. Banuelos, appreciate his recommendations other diagnoses and plan of care as per advanced practitioner's notes Devonte Hill MD
[2023-11-29 17:52] LABS: C Reactive Protein 1.18 mg/dl (0-0.5)
[2023-11-29 18:07] LABS: Thyroid Stimulating Hormone 2.569 uIu/ml (0.300-4.500)
[2023-11-29] MEDS: NITROGLYCERIN SL 0.4 MG/TAB TAB SL STA (18:07)
[2023-11-29] MEDS ORDERED: MoRPHine SULFATE 4 MG/ML 1 ML CARP\\VIAL IV PRN (18:40)
[2023-11-29] MEDS: NITROGLYCERIN 2% OINTMENT 30GM TUBE EXT SCH (19:08)
[2023-11-29] MEDS: PANTOprazole 40 MG in SYRINGE 0 ML IV STA (19:09)
[2023-11-29] MEDS: METOPROLOL TARTRATE 25 MG TAB PO ONE (19:09)
[2023-11-29] MEDS: ATORVASTATIN 40 MG TAB PO SCH (19:16)
[2023-11-29] MEDS: HEPARIN SODIUM/DEXTROSE 25,000 UNITS/500 ML BAG IV SCH (19:17)
[2023-11-29] MEDS: Heparin IV Adult Wt-Based Standard *NO* INITIAL Bolus Protocol IV STA (19:19)
[2023-11-29] MEDS ORDERED: POLYETHYLENE (MIRALAX) 17 GM PACK PO PRN (20:33)
[2023-11-29] MEDS: SODIUM CHLORIDE 0.9% 1,000 ML IV SCH (20:33)
[2023-11-29] MEDS: ACETAMINOPHEN 500 MG TAB PO SCH (21:06)
--- NOTE | 2023-11-29 21:16 | CT Scan Report ---
Exam(s): CT HEAD Without Contrast EXAM: CT Head Without Intravenous Contrast CLINICAL HISTORY: severe headache. TECHNIQUE: Axial computed tomography images of the head/brain without intravenous contrast. CTDI is 35.65 mGy and DLP is 547.75 mGy-cm. Automated exposure control was utilized for the study. A dose lowering technique was utilized adhering to the principles of ALARA. COMPARISON: No relevant prior studies available. FINDINGS: Brain: Unremarkable. No hemorrhage. No significant white matter disease. No edema. Ventricles: Unremarkable. No ventriculomegaly. Bones/joints: Unremarkable. No acute fracture. Soft tissues: Unremarkable. Sinuses: Unremarkable as visualized. No acute sinusitis. Mastoid air cells: Unremarkable as visualized. No mastoid effusion. IMPRESSION: No acute intracranial process identified. Electronically signed by: Nicolás Lopez MD 11/29/23 21:15 PM
[2023-11-29] MEDS: PANTOprazole 40 MG in SYRINGE 0 ML IV SCH (21:24)
[2023-11-30 02:18] LABS: Hematocrit (blood only) 41.5 % (37.0-47.0); Hemoglobin 14.4 g/dl (12.0-16.0); Mean Corpuscular Hemoglobin 29.1 pg (25.0-34.0); Mean Corpuscular Hgb Conc 34.7 g/dL (32.0-36.0); Mean Platelet Volume 10.2 fL (9.4-12.4); Platelet Count 289 K/uL (130-400); RDW Coefficient of Variation 13.4 % (11.5-14.5); RDW Standard Deviation 41.1 fL (36.4-46.3); Red Blood Count 4.94 M/uL (4.20-5.40); White Blood Count 12.55 K/ul (4.8-10.8)
[2023-11-30 02:34] LABS: Albumin Globulin Ratio 1.4 (0.9-2); BUN Creatinine Ratio 26.8 (10-20); Bilirubin,Total 0.5 mg/dl (0.2-1.0); Calcium 8.7 mg/dl (8.6-10.3); Chol HDL Ratio 6.9 (0-5); Creatinine Clr Calc Pharmacy 120.9 ml/min; Est GFR (African American) 120.8 ml/min; Est GFR (Non-African American) 104.2 ml/min; Globulin 2.9 gm/dl (2.5-4.0); Potassium 3.9 mmol/L (3.5-5.1); Total Protein 6.9 gm/dl (6.0-8.3)
[2023-11-30 02:57] LABS: ANTI-Xa, UFH(UnfractionatedHep 0.34 IU/ml (0.3-0.7)
[2023-11-30] MEDS: ONDANSETRON INJ 2 MG/ML 2 ML VIAL IV PRN (06:33)
[2023-11-30 06:55] LABS: Estimated Average Glucose 126 mg/dl
[2023-11-30] MEDS: METOPROLOL TARTRATE 25 MG TAB PO SCH (08:44)
[2023-11-30] MEDS: ASPIRIN 81 MG CHEW PO SCH (08:45)
--- NOTE | 2023-11-30 09:19 | Cardiology Consultation ---
Date of Consultation November 30, 2023 Assessment & Plan (1) NSTEMI (non-ST elevated myocardial infarction): * Troponin has trended up to 2,141 pg /ml, with development of progressive repolarization abnormalities on EKG (no ST segment elevation) * myocarditis a possibility, however, given risk factors , have high suspicion of culprit CAD * Continue ASA, metoprolol, heparin infusion. * Increase atorvastatin to 80 mg daily * plan for cardiac catheterization today (2) Hyperlipidemia: * Critically high , total cholesterol 262, LDL 194 mg /dl, similar to outpatient panel performed 04/2023. * atorvastatin 40 mg received this am after patient declined dose last night. * counseled pt on fast that she has had very high cholesterol levels * increase atorvastatin to 80 mg daily (3) Tobacco use disorder: * smoking cessation advised (4) Bronchitis: * viral respiratory panel was negative History of Present Illness Attending Physician: Yohan Segura MD History of Present Illness Ratna Alford is 58 year old female seen in cardiology consultation per the request of Dr Hill for the evaluation of chest pain with clinical concern for NSTEMI. Patient states that 4 days ago for the weekend she started feeling cold like symptoms with cough and congestion. On Tuesday she did not sleep at all and 11/28/2023 she slept all day long. She went back to work yesterday, 11/29/2023. 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 She had acute onset of midline chest discomfort with bilateral arm numbness prompting her to lie flat in the dental chair and she received assistance from coworkers and was prompted to go to the emergency department for evaluation. CT angiogram of the chest revealed no evidence of pulmonary embolism. EKG performed x 2 yesterday revealed sinus rhythm with nonspecific T wave flattening no ST segment elevation or depression. She was found to have a mild leukocytosis and initially received a dose of Toradol and methylprednisolone yesterday at just after 1:30 PM but this did not palliate her symptoms significantly. She subsequently received a dose of sublingual nitroglycerin and the patient describes that this palliated her symptoms immediately. The patient notes transient recurrent chest tightness overnight last night, but overall is comfortable, heparin infusion had been initiated last evening after I had discussed the case by phone with the admitting team. Her past medical history is notable for untreated dyslipidemia. Historically, she has had high LDL levels and in April,, it had been recommended that she start treatment with atorvastatin, but this had not occurred. The patient appears to have newly recognized diabetes with Hemoglobin A1c of 6%. Social History: Smoker Boyfriend, Mike, phone number [phone] Family History: Father , in a motor vehicle accident age 33 Paternal grandmother, possible history of heart issues, details unknown Mother: no heart disease Sister, healthy Allergies Allergy/AdvReac Type Severity Reaction Status Date / Time No Known Allergies Allergy Verified 11/29/23 15:19 Home Medications Medication Instructions Recorded Confirmed Type acetaminophen 500 mg tablet 1,000 mg PO Q6H PRN Pain 11/29/23 11/29/23 History (Tylenol Extra Strength) ibuprofen 200 mg tablet 600 - 800 mg PO Q6H PRN Pain 11/29/23 11/29/23 History naproxen sodium 220 mg tablet 220 mg PO Q8H PRN Pain 11/29/23 11/29/23 History (Aleve) tizanidine 2 mg tablet 2 mg PO DIRECTED PRN MUSCLE 11/29/23 11/29/23 History SPASMS Patient History Surgical History H/O foot surgery Family History Other Breast cancer Heart disease Ovarian cancer Social History Smoking Status: Current every day smoker Tobacco Type: Cigarettes packs per day: 1; Do You Dip or Chew Tobacco: No; Hx Alcohol Use: Yes Alcohol type: beer Hx Substance Use: Yes Last Used Substance: Days (ago) Preferred Language: Greenlandic Communication Ability: Effective Shirt Sorter Required: No Beliefs That Will Affect Care: None Current Living Situation: Significant Other Current Living Situation Comment: with Mike Solorzano Other Information That Helps Us Care for You: No Feels Safe at Home: Yes Safety Concerns: Feels Safe At This Time Assistive Devices: None Review of Systems Review of Systems: All systems reviewed & are unremarkable except as noted in HPI & below Physical Exam Physical Exam: General: no acute distress and stated age Eyes: conjunctiva are pink and non-injected, sclera clear Neck: normal jugular venous pulse, no hepatojugular reflux Chest: normal shape and normal respiratory effort Lungs: clear to auscultation and percussion Cardiac Exam: - regular heart sounds, no murmurs, rubs, or gallops, no jugular venous distention Abdomen: abdomen soft, non-tender, no abnormal masses and no hepatosplenomegaly Musculoskeletal: no gait disturbance, no weakness Extremities: no edema and no cyanosis Neuro:awake, conversant, follows commands, no focal motor deficits Psych: appropriate affect and insight. Results & Data Vital Signs (Past 12 Hours) Vital Signs Temp Pulse Resp BP Pulse Ox O2 Del Method 11/30/23 06:35 36.5 C 64 18 128/77 94 Room Air 11/30/23 06:19 67 115/70 11/30/23 02:48 36.9 C 69 18 108/67 95 Room Air 11/29/23 22:32 36.6 C 67 18 117/68 94 Room Air Laboratory Results Cardiac Enzymes 11/29/23 11/29/23 11/29/23 Range/Units 12:40 14:37 21:21 AST 22 (13-39) U/L Troponin I High Sens 824.7 H* 912.3 H* 1438.7 H* D (0-14) pg/ml 11/30/23 Range/Units 01:47 AST 40 H (13-39) U/L Troponin I High Sens 2141.6 H* D (0-14) pg/ml Coagulation 11/29/23 Range/Units 12:40 PT 10.8 (9.0-12.0) Seconds Lipids 11/30/23 Range/Units 01:47 Triglycerides 149 (0-150) mg/dl Cholesterol 262 H (0-200) mg/dl HDL Cholesterol 38 mg/dl Cholesterol/HDL Ratio 6.9 H (0-5) CBC 11/29/23 11/30/23 Range/Units 12:40 01:47 WBC 11.75 H 12.55 H (4.8-10.8) K/ul RBC 5.59 H 4.94 (4.20-5.40) M/uL Hgb 16.3 H 14.4 (12.0-16.0) g/dl Hct 47.3 H 41.5 (37.0-47.0) % Plt Count 285 289 (130-400) K/uL Neut # (Auto) 7.38 H (1.40-6.50) K/uL Lymph # (Auto) 3.29 (1.20-3.40) K/uL [place] # (Auto) 0.90 H (0.11-0.59) K/uL Eos # (Auto) 0.09 (0.00-0.50) K/uL Baso # (Auto) 0.04 (0.00-0.20) K/uL Comprehensive Metabolic Panel 11/29/23 11/30/23 Range/Units 12:40 01:47 Sodium 137 136 (136-145) mmol/L Potassium 3.6 3.9 (3.5-5.1) mmol/L Chloride 102 104 (98-107) mmol/L Carbon Dioxide 27 24 (21-32) mmol/L BUN 16 15 (6-23) mg/dl Creatinine 0.52 L 0.56 L (0.6-1.2) mg/dl Glucose 98 161 H (70-99(Fasting)) mg/dl Calcium 9.7 8.7 (8.6-10.3) mg/dl AST 22 40 H (13-39) U/L ALT 22 22 (7-52) U/L Alkaline Phosphatase 69 59 (34-104) U/L Total Protein 7.6 6.9 (6.0-8.3) gm/dl Albumin 4.5 4.0 (3.4-5.0) gm/dl Intake and Output 11/29/23 11/30/23 11/30/23 22:59 06:59 14:59 Intake Total 150 / 1250 1224.583 / 1224.583 Balance 150 / 1250 1224.583 / 1224.583 Intake: IV 1224.583 / 1224.583 Heparin Sodium/Dextrose 25,000 303.333 / 303.333 units In 500 ml @ 1,250 UNITS/ HR 25 mls/hr IV .Q20H [facility] Rx#: [id number] Sodium Chloride 0.9% 1,000 ml @ 921.25 / 921.25 75 mls/hr IV .[id number] [facility] Rx#: [id number] Oral 150 / 150 Other: Other Intake Source npo Weight 88.6 kg 88.6 kg Weight Measurement Method Built in Bedscale Standing Scale Diagnostic Findings TTecho performed 11/30/23: Preserved ejection fraction in the range of 55 to 60%, posterior wall motion abnormality EKG performed this morning 11/30/2023 and interpret independently: Sinus rhythm, poor R wave progression noted in the anterior precordial leads, diffuse T wave flattening, nonspecific repolarization abnormality in the inferior leads which is more prominent than the 2 tracings performed yesterday.
[2023-11-30] MEDS: ASPIRIN 81 MG CHEW PO STA (09:53)
--- NOTE | 2023-11-30 10:29 | Pre Anesthesia Assessment ---
Date of Service November 30, 2023 Pre Sedation Assessment Vital Signs Temp Pulse Pulse Resp BP BP Pulse Ox 11/30/23 10:12 63 16 124/76 95 11/30/23 09:59 73 11/30/23 06:35 97.7 F 64 18 128/77 94 11/30/23 06:19 67 115/70 11/30/23 02:48 98.4 F 69 18 108/67 95 11/29/23 22:32 97.9 F 67 18 117/68 94 11/29/23 21:09 97.9 F 70 18 134/82 96 11/29/23 21:00 68 11/29/23 21:00 11/29/23 19:30 73 22 140/85 94 11/29/23 19:15 75 20 95 11/29/23 18:30 78 19 89 L 11/29/23 18:03 84 16 96 11/29/23 17:30 94 H 17 93 11/29/23 17:25 83 18 166/91 H 96 11/29/23 17:19 73 11/29/23 17:03 83 19 95 11/29/23 16:30 81 16 95 11/29/23 16:06 72 22 94 11/29/23 15:33 71 20 95 11/29/23 15:09 73 15 95 11/29/23 14:33 79 17 95 11/29/23 14:21 85 24 95 11/29/23 14:14 76 17 168/99 H 95 11/29/23 13:45 78 18 11/29/23 13:11 82 11/29/23 13:10 186/120 H 11/29/23 13:08 80 24 99 11/29/23 13:08 87 23 165/94 H 98 11/29/23 12:35 98.2 F 67 17 171/106 H 98 O2 Del Method 11/30/23 10:12 Room Air 11/30/23 09:59 11/30/23 06:35 Room Air 11/30/23 06:19 11/30/23 02:48 Room Air 11/29/23 22:32 Room Air 11/29/23 21:09 Room Air 11/29/23 21:00 11/29/23 21:00 Room Air 11/29/23 19:30 11/29/23 19:15 11/29/23 18:30 06/04/24 18:03 11/29/23 17:30 11/29/23 17:25 Room Air 11/29/23 17:19 11/29/23 17:03 11/29/23 16:30 11/29/23 16:06 11/29/23 15:33 11/29/23 15:09 11/29/23 14:33 11/29/23 14:21 11/29/23 14:14 Room Air 11/29/23 13:45 11/29/23 13:11 11/29/23 13:10 11/29/23 13:08 Room Air 11/29/23 13:08 Room Air 11/29/23 12:35 Room Air Cardiovascular + regular rate Respiratory + respiratory effort normal Pre-Sedation Airway Assessment Smoking Status: Current every day smoker Hx Sleep Apnea: No Hx Difficult Intubation: No Short, Thick Neck: No Thyromental Distance: > or= 3.5 Finger Breadths Oral Cavity: + WNL Mallampati Class: III ASA: ASA3 NPO Status Date of Last Intake of Solid Food: 11/29/23 Time of Last Intake of Solid Foods: 21:00 Procedure Planning Contraindications for Sedation: none Current Medications Reviewed: Yes Notes The planned sedation has been discussed with the patient. Informed Consent was obtained. I have identified the patient, determined the appropriateness of sedation and have assessed the patient immediately prior to the procedure. All medicine(s) and interventions are by my order.
[2023-11-30] MEDS: TICAGRELOR 90 MG TAB ONE (11:30)
--- NOTE | 2023-11-30 11:45 | Post Anesthesia Assessment ---
Date of Service November 30, 2023 Post Sedation Assessment Vital Signs Temp Pulse Pulse Resp BP BP Pulse Ox 11/30/23 10:12 63 16 124/76 95 11/30/23 09:59 73 11/30/23 06:35 97.7 F 64 18 128/77 94 11/30/23 06:19 67 115/70 11/30/23 02:48 98.4 F 69 18 108/67 95 11/29/23 22:32 97.9 F 67 18 117/68 94 11/29/23 21:09 97.9 F 70 18 134/82 96 11/29/23 21:00 68 11/29/23 21:00 11/29/23 19:30 73 22 140/85 94 11/29/23 19:15 75 20 95 11/29/23 18:30 78 19 89 L 11/29/23 18:03 84 16 96 11/29/23 17:30 94 H 17 93 11/29/23 17:25 83 18 166/91 H 96 11/29/23 17:19 73 11/29/23 17:03 83 19 95 11/29/23 16:30 81 16 95 11/29/23 16:06 72 22 94 11/29/23 15:33 71 20 95 11/29/23 15:09 73 15 95 11/29/23 14:33 79 17 95 11/29/23 14:21 85 24 95 11/29/23 14:14 76 17 168/99 H 95 11/29/23 13:45 78 18 11/29/23 13:11 82 11/29/23 13:10 186/120 H 11/29/23 13:08 80 24 99 11/29/23 13:08 87 23 165/94 H 98 11/29/23 12:35 98.2 F 67 17 171/106 H 98 O2 Del Method 11/30/23 10:12 Room Air 11/30/23 09:59 11/30/23 06:35 Room Air 11/30/23 06:19 11/30/23 02:48 Room Air 11/29/23 22:32 Room Air 11/29/23 21:09 Room Air 11/29/23 21:00 11/29/23 21:00 Room Air 11/29/23 19:30 11/29/23 19:15 11/29/23 18:30 06/04/24 18:03 11/29/23 17:30 11/29/23 17:25 Room Air 11/29/23 17:19 11/29/23 17:03 11/29/23 16:30 11/29/23 16:06 11/29/23 15:33 11/29/23 15:09 11/29/23 14:33 11/29/23 14:21 11/29/23 14:14 Room Air 11/29/23 13:45 11/29/23 13:11 11/29/23 13:10 11/29/23 13:08 Room Air 11/29/23 13:08 Room Air 11/29/23 12:35 Room Air Recovery Score Activity: Moves 4 extremities Respiration: Deep Breath/Cough Circulation: +/-20% PreAnes Value Consciousness: Fully Awake Oxygen Saturation: O2 needed for >90% Discharge Sedation Level of Care: Fast Track Phase II Post Sedation Plan On clinical assessment, the patient appears to have tolerated the sedation w ithout complications. Patient is recovering as anticipated. Patient will continue to be monitored by nursing and may be discharged when sedation discharge criteria are met per below protocol. Upon Completions of procedure up to 15 minutes continue every 5 minute vital signs and the P.A.R. score; then discharge to a Phase I or Fast Track to Phase II per the following guidelines: * Discharge Patient to appropriate Phase II area if PAR is 8 or greater or return to pre- procedure baseline. The post - procedure orders will be as directed. * If PAR score is less than 8 or not return to pre-procedure baseline then patient will follow Phase I monitoring till PAR is reached for Phase II. The Phase I may be done in procedure room or may call to secure a Phase I area. * If naloxone or flumazenil are used for reversal, hold in Phase I for continued monitoring from when last reversal dose was given for a minimum of 60 minutes or longer pending the nurse and/or physician discretion of patient condition before discharge to Phase II. Please call the Sedation Physician to re-evaluate and complete post-note for discharge to Phase II area. Do NOT discharge from procedure sedation or Phase 1 until post- sedation evaluation note is complete by procedure /sedation MD Sedation Discharge Instructions to be given to the patient at discharge to home.
--- NOTE | 2023-11-30 11:46 | Cardiac Catheterization ---
[facility] Data: Juice Tester Cardiac Status Clinical evaluation leading to the procedure CAD Presenation: Non STEMI Anginal Classification: CCS IV Diagnostic Physicians Name: Sreedhar Lee MD Closure Device Recommendations: PCI without planned CABG Cardiac Cath Procedure Full Procedure Date November 30, 2023 Pre-Procedure Diagnosis Pre-Procedure Diagnosis: Non STEMI AUC Score AUC Score: 8 Post-Procedure Diagnosis Post-Procedure Diagnosis: Severe CAD, Successful PCI and Elevated Intracardiac Pressures Procedure(s) Performed Procedure(s) Performed: Coronary Angiography, Left Heart Cath and Drug Eluting Stent Family Practice Md Sreedhar Lee MD Retort Load Expediter(s) Showers Estimated Blood Loss Estimated Blood Loss: 20 Medication(s) Medication(s): Fentanyl, Heparin, Lidocaine 1%, Nicardipine, Nitroglycerin and Versed Medication(s): Ticagrelor Summary of Findings Indication: High risk NSTEMI Access: 6 Fr right radial artery Catheters: [place], EBU 3.5 guide Findings: LM -normal caliber, no significant disease. LAD -medium caliber, 30% proximal disease, 70 to 80% earlymid segment disease prior to ectatic area before third diagonal. Late middistal vessel without significant disease and wraps around apex. Medium D1 with 80% proximal stenosis. Small D2, D3 without disease. Circumflex -medium caliber, nondominant, 100% acute proximal OM 2. Faint left to left collaterals fills OM2 retrograde RCA -dominant, medium caliber, 20 to 30% mid segment disease, distal vessel without significant disease. Small to medium caliber RPDA without disease. Acute marginal branch with 70% proximal stenosis. LVEDP -18 -- PCI -- Antithrombotic therapy: Heparin, ticagrelor Procedure: Left main cannulated with EBU 3.5 guide Pre-procedure flow MERRY 0 [employer]oring [employer] Operator 50 wire passed across lesion into distal vessel Proximal OM 2 lesion predilated with 2.5 compliant balloon Dilated lesion stented with 2.75 x 18 mm Jarad drug-eluting stent Stent post-dilated with 3.0 noncompliant balloon IC vasodilators administered for spasm Post procedure MERRY 3 flow, stent well expanded with minimal residual stenosis and no apparent cardiac complications. Arterial Closure: TR band Summary: 1. Multivessel coronary artery disease -100% acute proximal OM 2 70 to 80% earlymid LAD. 80% proximal D1 2. Elevated intracardiac filling pressure 3. Successful PCI of proximal OM 2 occlusion with single drug-eluting stent (2.7 5 x 18 mm Jarad; postdilated with 3.0 NC). Recommendations: To PCU for continued monitoring Loaded with ticagrelor 180 mg in Juice Tester Continue dual-antiplatelet therapy for at least 1 year Continue statin, and ASCVD risk factor modification Consult cardiac Rehab Plan on staged PCI of mid LAD at a later date, likely during this hospitalization. Hemodynamics Rest Ao:: 120/79 Final Ao: 106/42 LV: 120/18 Recommendations Recommendations: PCI without planned CABG Specimens Specimens: None Radiation Exposure (mGy) 2460 Contrast (mls) 140 Anesthesia Moderate 6335-0060 Procedural Complication(s) None Disposition PCU I attest to the content of the Intraoperative Record and any orders documented therein. Any exceptions are noted below. [facility] Card Cath Procedure Codes Cardiac Catheterization Procedure 1: Cardiovascular Cath Procedures: 49585 Coronaries and LHC (+/-LV) Moderate Sedation Procedure 1: Sedation/Anesthesia: 26399 Mod Sedation by the same physician;Init15 Min Child Age 5 & Up Procedure 2: Sedation/Anesthesia: 18326 Mod Sedation by a different physician;Ea Additional 15 Minutes Stenting Procedure 1: Cardiovascular Stent Procedures: 13565 Perc transluminal revascularization of acute sub/total occl, aMI PG Care Time/CCT Total # of Minutes Spent Total Time Spent with Patient: Total time spent is greater than 50% in coordination of care (as documented) at patient's floor/unit and/or counseling patient:
[2023-11-30] MEDS: fentaNYL citrate PF 100 MCG/2 ML VIAL ONE (11:56)
[2023-11-30] MEDS: HEPARIN (PORCINE) 1000 UNIT/ML 10 ML (CATH LAB USE ONLY) ONE (11:57)
[2023-11-30] MEDS: niCARdipine HCL INJ 2.5 MG/ML 10 ML AMP ONE (11:58)
[2023-11-30] MEDS: MIDAZOLAM HCL 1 MG/ML 2ML VIAL ONE (11:58)
[2023-11-30] MEDS: OPTIRAY 350 ONE (11:59)
[2023-11-30] MEDS: NITROGLYCERIN/D5W 100MCG/ML 20ML SYR ONE (12:00)
--- NOTE | 2023-11-30 14:57 | Hospitalist Progress Note ---
Date of Service November 30, 2023 Assessment & Plan (1) NSTEMI (non-ST elevated myocardial infarction): Plan: 58yo F with a PMH of dyslipidemia, tobacco use disorder who presents with burning CP x 3 days. Patient presented with chest pain with radiation to arm and jaw EKG reviewed NSR with Nonspecific T wave changes Chest CTA with no PE or pericardial effusion High-sensitivity troponin elevated to 5435. Status post PCI on November 30, 2023 on left circumflex On aspirin, Brilinta. Continue on high-dose statin Continue beta-kim with metoprolol Telemonitoring Repeat EKG if chest pain recurs (2) Tobacco use disorder: Plan: Interested in smoking cessation. Follow-up with PCP (3) Bronchitis: Plan: Viral symptoms last week Resp viral panel today negative Bronchial wall thickening may represent bronchitis vs. reactive airway disease Cont PRN nebs, PRN Mucinex (4) Hyperlipidemia: Plan: on lipitor DVT Ppx:SCDs Code status: FULL PCP: Maliha Dispo: Admitted to PCU Time spent evaluating patient, direct bedside care, chart review, placing orders, interpretation of diagnostic studies, discussion with consultants, patient, and family members, as well as other required patient management activities is 50 minutes Please note the above document was generated using voice recognition software. It may contain grammatical, syntax or spelling errors. Any formal questions or concerns about the content, text or information contained within the body of this dictation should be directly addressed to the provider for clarification Admission and Anticipated Discharge Date Admission Date: November 29, 2023 Subjective Patient seen after the procedure. She reports that chest pain, and jaw pain has resolved Comfortable; not in distress. Review of Systems Review of Systems: All systems reviewed & are unremarkable except as noted in Subjective Physical Exam Physical Exam: Constitutional: WD/WN, vitals as above, NAD, sitting up in bed, pleasant, conversing easily Respiratory: normal respiratory effort, lungs clear to auscultation, no wheeze, rales, rhonchi. Normal insp/exp effort, no accessory muscle use Cardiovascular: RRR, no murmur, no edema Vessels: no JVD or carotid bruit Chest: normal inspection of chest Abdomen: normal bowel sounds, soft, nontender, no hepatosplenomegaly Musculoskeletal: no cyanosis or clubbing, extremities motor strength 5/5 Skin: no rashes, warm and dry normal turgor Neurologic: PERRL, EOMI, accommodation nl, no face palsy, no dysarthria CN's II- XI intact bilaterally and moves all extremities Psychiatric: A+Ox3, euthymic affect Results & Data Results & Data Vital Signs (Past 12 Hours) Vital Signs Temp Pulse Pulse Resp BP BP Pulse Ox 11/30/23 12:55 36.4 C L 61 18 111/70 95 11/30/23 12:15 36.4 C L 59 L 18 106/63 95 11/30/23 12:01 65 15 113/72 92 11/30/23 11:48 58 L 14 115/68 92 11/30/23 10:12 63 16 124/76 95 11/30/23 09:59 73 11/30/23 06:35 36.5 C 64 18 128/77 94 11/30/23 06:19 67 115/70 O2 Del Method 11/30/23 12:55 Room Air 11/30/23 12:15 Room Air 11/30/23 12:01 Room Air 11/30/23 11:48 Room Air 11/30/23 10:12 Room Air 11/30/23 09:59 11/30/23 06:35 Room Air 11/30/23 06:19
[2023-11-30] MEDS: MAGNESIUM SULFATE / D5W 1 GM/100 ML BAG IV SCH (15:42)
[2023-11-30] MEDS: TICAGRELOR 90 MG TAB PO SCH (23:12)
[2023-12-01 07:45] LABS: Basophils # (auto) 0.03 K/uL (0.00-0.20); Basophils % (auto) 0.2 %; Eosinophils # (auto) 0.07 K/uL (0.00-0.50); Eosinophils % (auto) 0.5 %; Hemoglobin 13.8 g/dl (12.0-16.0); Immature Granulocytes # (auto) 0.06 K/uL (0.01-0.20); Immature Granulocytes % (auto) 0.4 %; Lymphocytes # (auto) 2.93 K/uL (1.20-3.40); Lymphocytes % (auto) 19.5 %; Mean Corpuscular Hemoglobin 29.3 pg (25.0-34.0); Mean Corpuscular Hgb Conc 33.7 g/dL (32.0-36.0); Mean Platelet Volume 10.2 fL (9.4-12.4); Monocytes # (auto) 1.12 K/uL (0.11-0.59); Monocytes % (auto) 7.4 %; Neutrophils # (auto) 10.83 K/uL (1.40-6.50); Platelet Count 280 K/uL (130-400); RDW Coefficient of Variation 13.9 % (11.5-14.5); Red Blood Count 4.71 M/uL (4.20-5.40); White Blood Count 15.04 K/ul (4.8-10.8)
[2023-12-01 08:06] LABS: BUN Creatinine Ratio 31.8 (10-20); Calcium 8.7 mg/dl (8.6-10.3); Creatinine Clr Calc Pharmacy 102.5 ml/min; Est GFR (African American) 114.5 ml/min; Est GFR (Non-African American) 98.8 ml/min; Potassium 3.9 mmol/L (3.5-5.1)
[2023-12-01] MEDS: ATORVASTATIN 40 MG TAB PO SCH (08:58)
--- NOTE | 2023-12-01 12:15 | Cardiology Progress Note ---
Date of Service December 01, 2023 Assessment & Plan (1) NSTEMI (non-ST elevated myocardial infarction): Plan: * Patient underwent invasive coronary angiography on 11/30/2023 with findings of multivessel CAD including culprit 100% acute proximal OM2 stenosis, 70 to 80% early-mid LAD, 80% proximal diagonal 1. Patient underwent successful PCI of the proximal OM 2 occlusion with a single drug-eluting stent placed. * EKG with stable findings * Continue aspirin 81 mg daily (lifelong therapy), continue Brilinta 90 mg twice daily (likely for 1 year). * Continue metoprolol. Changed to succinate formulation 50 mg daily on 12/01. * Continue atorvastatin 80 mg daily * Likely for staged PCI of LAD, diagonal on 12/02/2023 (2) Hyperlipidemia: Plan: * Critically high , total cholesterol 262, LDL 194 mg /dl, similar to outpatient panel performed 04/2023. * Continue atorvastatin 80 mg daily. (3) Tobacco use disorder: Plan: * Pt dedicated to ceasing smoking. (4) Bronchitis: Plan: * viral respiratory panel was negative Admission and Anticipated Discharge Date Admission Date: November 29, 2023 Subjective Patient feeling well. Denies chest discomfort or shortness of breath. States this feels markedly improvement compared to prior to the stent. Physical Exam Physical Exam: General: no acute distress and stated age Eyes: conjunctiva are pink and non-injected, sclera clear Neck: normal jugular venous pulse, no hepatojugular reflux Chest: normal shape and normal respiratory effort Lungs: clear to auscultation and percussion Cardiac Exam: - regular heart sounds, no murmurs, rubs, or gallops, no jugular venous distention Abdomen: abdomen soft, non-tender, no abnormal masses and no hepatosplenomegaly Musculoskeletal: no gait disturbance, no weakness Extremities: no edema and no cyanosis Neuro:awake, conversant, follows commands, no focal motor deficits Psych: appropriate affect and insight. Results & Data Vital Signs (Past 12 Hours) Vital Signs Temp Pulse Pulse Resp BP BP Pulse Ox 12/01/23 11:02 36.5 C 68 18 115/78 97 12/01/23 08:13 36.8 C 74 22 118/73 96 12/01/23 05:47 36.7 C 74 16 114/72 96 O2 Del Method 12/01/23 11:02 Room Air 12/01/23 08:13 Room Air 12/01/23 05:47 Room Air Laboratory Results CBC 12/01/23 Range/Units 06:55 WBC 15.04 H (4.8-10.8) K/ul RBC 4.71 (4.20-5.40) M/uL Hgb 13.8 (12.0-16.0) g/dl Hct 41.0 (37.0-47.0) % Plt Count 280 (130-400) K/uL Neut # (Auto) 10.83 H (1.40-6.50) K/uL Lymph # (Auto) 2.93 (1.20-3.40) K/uL [place] # (Auto) 1.12 H (0.11-0.59) K/uL Eos # (Auto) 0.07 (0.00-0.50) K/uL Baso # (Auto) 0.03 (0.00-0.20) K/uL Comprehensive Metabolic Panel 12/01/23 Range/Units 06:55 Sodium 138 (136-145) mmol/L Potassium 3.9 (3.5-5.1) mmol/L Chloride 104 (98-107) mmol/L Carbon Dioxide 27 (21-32) mmol/L BUN 21 (6-23) mg/dl Creatinine 0.66 (0.6-1.2) mg/dl Glucose 105 H (70-99(Fasting)) mg/dl Calcium 8.7 (8.6-10.3) mg/dl Intake and Output 11/30/23 12/01/23 12/01/23 22:59 06:59 14:59 Intake Total 400 / 2180.250 150 / 2180.250 Balance 400 / 2180.250 150 / 2180.250 Intake: IV 200 / 1830.250 Magnesium Sulfate / D5w 1 gm In 200 / 200 100 ml @ 50 mls/hr IV Q2H [facility] Rx#:[id number] Oral 200 / 350 150 / 350 Other: Weight 88.5 kg Diagnostic Findings EKG performed today 12/01/2023 at 5:42 AM and reviewed/interpreted independently: Sinus rhythm 75 bpm with sinus arrhythmia, poor R wave progression noted in the anterior precordial leads, subtle ST segment depression in the inferior leads has resolved and has been replaced with nonspecific T wave flattening, repolarization changes in the lateral leads improved.
--- NOTE | 2023-12-01 13:54 | Hospitalist Progress Note ---
Date of Service December 01, 2023 Assessment & Plan (1) NSTEMI (non-ST elevated myocardial infarction): Plan: 58yo F with a PMH of dyslipidemia, tobacco use disorder who presents with burning CP x 3 days. Patient presented with chest pain with radiation to arm and jaw EKG reviewed NSR with Nonspecific T wave changes Chest CTA with no PE or pericardial effusion High-sensitivity troponin elevated to 5435. Status post PCI on November 30, 2023 on left circumflex On aspirin, Brilinta. Continue on high-dose statin Plan for staged PCI of LAD, diagonal on December 02, 2023. npo from midnight Continue beta-kim with metoprolol Telemonitoring Repeat EKG if chest pain recurs (2) Tobacco use disorder: Plan: Interested in smoking cessation. Follow-up with PCP (3) Bronchitis: Plan: Viral symptoms last week Resp viral panel t negative Cont PRN nebs, PRN Mucinex (4) Hyperlipidemia: Plan: on lipitor DVT Ppx:SCDs Code status: FULL PCP: Maliha Dispo: Admitted to PCU Time spent evaluating patient, direct bedside care, chart review, placing orders, interpretation of diagnostic studies, discussion with consultants, patient, and family members, as well as other required patient management activities is 50 minutes Please note the above document was generated using voice recognition software. It may contain grammatical, syntax or spelling errors. Any formal questions or concerns about the content, text or information contained within the body of this dictation should be directly addressed to the provider for clarification Admission and Anticipated Discharge Date Admission Date: November 29, 2023 Subjective Patient seen and examined at bedside. She denies any chest pain or pressure Overnight, 6 beats of NSVT. Vital stable; saturating well on room air. Review of Systems Review of Systems: All systems reviewed & are unremarkable except as noted in Subjective Physical Exam Physical Exam: Constitutional: WD/WN, vitals as above, NAD, sitting up in bed, pleasant, conversing easily Respiratory: normal respiratory effort, lungs clear to auscultation, no wheeze, rales, rhonchi. Normal insp/exp effort, no accessory muscle use Cardiovascular: RRR, no murmur, no edema Vessels: no JVD or carotid bruit Chest: normal inspection of chest Abdomen: normal bowel sounds, soft, nontender, no hepatosplenomegaly Musculoskeletal: no cyanosis or clubbing, extremities motor strength 5/5 Skin: no rashes, warm and dry normal turgor Neurologic: PERRL, EOMI, accommodation nl, no face palsy, no dysarthria CN's II- XI intact bilaterally and moves all extremities Psychiatric: A+Ox3, euthymic affect Results & Data Results & Data Vital Signs (Past 12 Hours) Vital Signs Temp Pulse Pulse Resp BP BP Pulse Ox 12/01/23 11:02 36.5 C 68 18 115/78 97 12/01/23 08:13 36.8 C 74 22 118/73 96 12/01/23 05:47 36.7 C 74 16 114/72 96 O2 Del Method 12/01/23 11:02 Room Air 12/01/23 08:13 Room Air 12/01/23 05:47 Room Air
[2023-12-02 06:27] LABS: Basophils # (auto) 0.03 K/uL (0.00-0.20); Basophils % (auto) 0.3 %; Eosinophils # (auto) 0.13 K/uL (0.00-0.50); Eosinophils % (auto) 1.3 %; Hematocrit (blood only) 41.2 % (37.0-47.0); Hemoglobin 14.1 g/dl (12.0-16.0); Immature Granulocytes # (auto) 0.04 K/uL (0.01-0.20); Immature Granulocytes % (auto) 0.4 %; Lymphocytes # (auto) 2.32 K/uL (1.20-3.40); Mean Corpuscular Hemoglobin 29.6 pg (25.0-34.0); Mean Corpuscular Hgb Conc 34.2 g/dL (32.0-36.0); Mean Corpuscular Volume 86.6 fL (80.0-100.0); Monocytes # (auto) 0.87 K/uL (0.11-0.59); Neutrophils # (auto) 6.26 K/uL (1.40-6.50); Platelet Count 246 K/uL (130-400); RDW Coefficient of Variation 13.7 % (11.5-14.5); RDW Standard Deviation 42.7 fL (36.4-46.3); Red Blood Count 4.76 M/uL (4.20-5.40); White Blood Count 9.65 K/ul (4.8-10.8)
--- NOTE | 2023-12-02 06:33 | Electrocardiogram Report ---
Test Reason : Blood Pressure : / mmHG Vent. Rate : 078 BPM Atrial Rate : 078 BPM P-R Int : 140 ms QRS Dur : 076 ms QT Int : 386 ms P-R-T Axes : -06 039 055 degrees QTc Int : 440 ms Normal sinus rhythm with sinus arrhythmia Cannot rule out Anterior infarct , age undetermined ST elevation, consider inferior injury pattern Abnormal ECG No previous ECGs available Confirmed by Bennie Salas ([id number]) on 12/02/2023 6:33:22 AM Referred By: Confirmed By:Bennie Salas
[2023-12-02 06:44] LABS: BUN Creatinine Ratio 32.7 (10-20); Calcium 9.1 mg/dl (8.6-10.3); Est GFR (African American) 121.5 ml/min; Est GFR (Non-African American) 104.9 ml/min
[2023-12-02] MEDS: ALPRAZolam 0.25 MG TABLET PO ONE (10:41)
--- NOTE | 2023-12-02 10:55 | Cardiology Progress Note ---
Date of Service December 02, 2023 Assessment & Plan (1) NSTEMI (non-ST elevated myocardial infarction): Plan: * Patient underwent invasive coronary angiography on 11/30/2023 with findings of multivessel CAD including culprit 100% acute proximal OM2 stenosis, 70 to 80% early-mid LAD, 80% proximal diagonal 1. Patient underwent successful PCI of the proximal OM 2 occlusion with a single drug-eluting stent placed. * Continue aspirin 81 mg daily (lifelong therapy), continue Brilinta 90 mg twice daily (likely for 1 year). * Continue metoprolol succinate 50 mg daily. * Continue atorvastatin 80 mg daily * Staged PCI of LAD, diagonal today 12/02/2023 (2) Hyperlipidemia: Plan: * Critically high , total cholesterol 262, LDL 194 mg /dl, similar to outpatient panel performed 04/2023. * Continue atorvastatin 80 mg daily. (3) Tobacco use disorder: Plan: * Pt dedicated to ceasing smoking. (4) Bronchitis: Plan: * viral respiratory panel was negative Admission and Anticipated Discharge Date Admission Date: November 29, 2023 Subjective 58-year-old female seen and examined at the bedside. Admitted with NSTEMI. Cardiac catheterization revealing multivessel disease, OM (culprit), LAD, and diagonal branch vessel disease. PCI of OM performed 12/01/2023 without complication. Scheduled for staged PCI of the LAD and diagonal today. No recurrent chest discomfort overnight. Jeferson in sinus rhythm on telemetry. Offers no concerns/complaints. Review of Systems Review of Systems: All systems reviewed & are unremarkable except as noted in Subjective Physical Exam Constitutional: well nourished; no acute distress Respiratory: no respiratory distress, no labored breathing and no retractions Auscultation: lungs clear to auscultation bilaterally; no crackles, no rales, no rhonchi and no wheezes Cardiovascular: Rate/Rhythm: regular rate and regular rhythm Heart Sounds: normal S1 and normal S2; no murmur Gastrointestinal (Abdomen): Inspection/Auscultation: normal bowel sounds; abdomen not distended Percussion/Palpation: abdomen soft; abdomen nontender, no guarding and abdomen not rigid Neurologic: CN's II-XI intact bilaterally and moves all extremities; no focal motor deficits Results & Data Vital Signs (Past 12 Hours) Vital Signs Temp Pulse Resp BP BP Pulse Ox O2 Del Method 12/02/23 07:32 36.4 C L 74 18 188/99 H 95 Room Air 12/02/23 03:34 36.5 C 97 H 18 128/84 97 Room Air Laboratory Results CBC 12/02/23 Range/Units 05:32 WBC 9.65 (4.8-10.8) K/ul RBC 4.76 (4.20-5.40) M/uL Hgb 14.1 (12.0-16.0) g/dl Hct 41.2 (37.0-47.0) % Plt Count 246 (130-400) K/uL Neut # (Auto) 6.26 (1.40-6.50) K/uL Lymph # (Auto) 2.32 (1.20-3.40) K/uL [place] # (Auto) 0.87 H (0.11-0.59) K/uL Eos # (Auto) 0.13 (0.00-0.50) K/uL Baso # (Auto) 0.03 (0.00-0.20) K/uL Comprehensive Metabolic Panel 12/02/23 Range/Units 05:32 Sodium 138 (136-145) mmol/L Potassium 4.0 (3.5-5.1) mmol/L Chloride 105 (98-107) mmol/L Carbon Dioxide 27 (21-32) mmol/L BUN 18 (6-23) mg/dl Creatinine 0.55 L (0.6-1.2) mg/dl Glucose 99 (70-99(Fasting)) mg/dl Calcium 9.1 (8.6-10.3) mg/dl Intake and Output 12/01/23 12/02/23 12/02/23 22:59 06:59 14:59 Intake Total 240 / 820 Output Total 600 / 600 Balance 240 / 820 -600 / -600 Intake: Oral 240 / 820 Output: Urine 600 / 600 Other: # Unmeasured Voids 1
--- NOTE | 2023-12-02 12:53 | Hospitalist Progress Note ---
Date of Service December 02, 2023 Assessment & Plan (1) NSTEMI (non-ST elevated myocardial infarction): Plan: 58yo F with a PMH of dyslipidemia, tobacco use disorder who presents with burning CP x 3 days. Patient presented with chest pain with radiation to arm and jaw EKG reviewed NSR with Nonspecific T wave changes Chest CTA with no PE or pericardial effusion High-sensitivity troponin elevated to 5435. Status post PCI on November 30, 2023 on left circumflex On aspirin, Brilinta. Continue on high-dose statin Plan for staged PCI of LAD, diagonal today Continue beta-kim with metoprolol Telemonitoring Repeat EKG if chest pain recurs (2) Tobacco use disorder: Plan: Interested in smoking cessation. Discussed in details with patient. Follow-up with PCP (3) Bronchitis: Plan: Viral symptoms last week Resp viral panel t negative Cont PRN nebs, PRN Mucinex (4) Hyperlipidemia: Plan: on lipitor DVT Ppx:SCDs Code status: FULL PCP: Maliha Dispo: Admitted to PCU Please note the above document was generated using voice recognition software. It may contain grammatical, syntax or spelling errors. Any formal questions or concerns about the content, text or information contained within the body of this dictation should be directly addressed to the provider for clarification Admission and Anticipated Discharge Date Admission Date: November 29, 2023 Subjective Hemoglobin patient seen and examined at bedside. She is comfortable; not in distress. Denies any chest pain or discomfort No significant events overnight Review of Systems Review of Systems: All systems reviewed & are unremarkable except as noted in Subjective Physical Exam Physical Exam: Constitutional: WD/WN, vitals as above, NAD, sitting up in bed, pleasant, conversing easily Respiratory: normal respiratory effort, lungs clear to auscultation, no wheeze, rales, rhonchi. Normal insp/exp effort, no accessory muscle use Cardiovascular: RRR, no murmur, no edema Vessels: no JVD or carotid bruit Chest: normal inspection of chest Abdomen: normal bowel sounds, soft, nontender, no hepatosplenomegaly Musculoskeletal: no cyanosis or clubbing, extremities motor strength 5/5 Skin: no rashes, warm and dry normal turgor Neurologic: PERRL, EOMI, accommodation nl, no face palsy, no dysarthria CN's II- XI intact bilaterally and moves all extremities Psychiatric: A+Ox3, euthymic affect Results & Data Results & Data Vital Signs (Past 12 Hours) Vital Signs Temp Pulse Resp BP BP Pulse Ox O2 Del Method 12/02/23 11:29 36.8 C 70 18 118/77 94 Room Air 12/02/23 07:32 36.4 C L 74 18 188/99 H 95 Room Air 12/02/23 03:34 36.5 C 97 H 18 128/84 97 Room Air
[2023-12-02] MEDS: MIDAZOLAM HCL 1 MG/ML 2ML VIAL ONE ×2 (16:28→16:43)
[2023-12-02] MEDS: niCARdipine HCL INJ 2.5 MG/ML 10 ML AMP ONE (16:29)
[2023-12-02] MEDS: HEPARIN (PORCINE) 1000 UNIT/ML 10 ML (CATH LAB USE ONLY) ONE (16:29)
[2023-12-02] MEDS: fentaNYL citrate PF 100 MCG/2 ML VIAL ONE (16:29)
[2023-12-02] MEDS: NITROGLYCERIN/D5W 100MCG/ML 20ML SYR ONE (16:30)
[2023-12-02] MEDS: OPTIRAY 350 ONE (16:30)
--- NOTE | 2023-12-02 17:02 | Post Anesthesia Assessment ---
Date of Service December 02, 2023 Post Sedation Assessment Vital Signs Temp Pulse Pulse Resp BP BP Pulse Ox 12/02/23 14:42 71 16 126/86 97 12/02/23 11:29 98.2 F 70 18 118/77 94 12/02/23 07:32 97.5 F L 74 18 188/99 H 95 12/02/23 03:34 97.7 F 97 H 18 128/84 97 12/01/23 22:39 97.3 F L 71 18 110/71 96 12/01/23 22:04 66 12/01/23 19:47 98.1 F 76 16 114/75 96 O2 Del Method 12/02/23 14:42 Room Air 12/02/23 11:29 Room Air 12/02/23 07:32 Room Air 12/02/23 03:34 Room Air 12/01/23 22:39 Room Air 12/01/23 22:04 12/01/23 19:47 Room Air Recovery Score Activity: Moves 4 extremities Respiration: Deep Breath/Cough Circulation: +/-20% PreAnes Value Consciousness: Fully Awake Oxygen Saturation: > 92% On Room Air Post Anesthesia Score: 10 Discharge Sedation Level of Care: Fast Track Phase II Post Sedation Plan On clinical assessment, the patient appears to have tolerated the sedation without complications. Patient is recovering as anticipated. Patient will continue to be monitored by nursing and may be discharged when sedation discharge criteria are met per below protocol. Upon Completions of procedure up to 15 minutes continue every 5 minute vital signs and the P.A.R. score; then discharge to a Phase I or Fast Track to Phase II per the following guidelines: * Discharge Patient to appropriate Phase II area if PAR is 8 or greater or return to pre- procedure baseline. The post - procedure orders will be as directed. * If PAR score is less than 8 or not return to pre-procedure baseline then patient will follow Phase I monitoring till PAR is reached for Phase II. The Phase I may be done in procedure room or may call to secure a Phase I area. * If naloxone or flumazenil are used for reversal, hold in Phase I for continued monitoring from when last reversal dose was given for a minimum of 60 minutes or longer pending the nurse and/or physician discretion of patient condition before discharge to Phase II. Please call the Sedation Physician to re-evaluate and complete post-note for discharge to Phase II area. Do NOT discharge from procedure sedation or Phase 1 until post- sedation evaluation note is complete by procedure /sedation MD Sedation Discharge Instructions to be given to the patient at discharge to home.
--- NOTE | 2023-12-02 17:02 | Pre Anesthesia Assessment ---
Date of Service December 02, 2023 Pre Sedation Assessment Vital Signs Temp Pulse Pulse Resp BP BP Pulse Ox 12/02/23 14:42 71 16 126/86 97 12/02/23 11:29 98.2 F 70 18 118/77 94 12/02/23 07:32 97.5 F L 74 18 188/99 H 95 12/02/23 03:34 97.7 F 97 H 18 128/84 97 12/01/23 22:39 97.3 F L 71 18 110/71 96 12/01/23 22:04 66 12/01/23 19:47 98.1 F 76 16 114/75 96 O2 Del Method 12/02/23 14:42 Room Air 12/02/23 11:29 Room Air 12/02/23 07:32 Room Air 12/02/23 03:34 Room Air 12/01/23 22:39 Room Air 12/01/23 22:04 12/01/23 19:47 Room Air Cardiovascular + regular rate Respiratory + respiratory effort normal Pre-Sedation Airway Assessment Smoking Status: Current every day smoker Hx Sleep Apnea: No Hx Difficult Intubation: No Short, Thick Neck: No Thyromental Distance: > or= 3.5 Finger Breadths Oral Cavity: + WNL Mallampati Class: III ASA: ASA3 NPO Status Date of Last Intake of Solid Food: 12/01/23 Time of Last Intake of Solid Foods: 18:00 Procedure Planning Contraindications for Sedation: none Current Medications Reviewed: Yes Notes The planned sedation has been discussed with the patient. Informed Consent was obtained. I have identified the patient, determined the appropriateness of sedation and have assessed the patient immediately prior to the procedure. All medicine(s) and interventions are by my order.
--- NOTE | 2023-12-02 17:09 | Cardiac Catheterization ---
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 Cardiac Status Clinical evaluation leading to the procedure CAD Presenation: Non STEMI Anginal Classification: CCS IV Diagnostic Physicians Name: Sreedhar Lee MD Closure Device Recommendations: PCI without planned CABG Cardiac Cath Procedure Full Procedure Date December 02, 2023 Pre-Procedure Diagnosis Pre-Procedure Diagnosis: Non STEMI AUC Score AUC Score: 8 Post-Procedure Diagnosis Post-Procedure Diagnosis: Severe CAD and Successful PCI Procedure(s) Performed Procedure(s) Performed: Coronary Angiography and Drug Eluting Stent Medical Office Secretary Sreedhar Lee MD Valet Parker(s) Mule Developer Estimated Blood Loss Estimated Blood Loss: 20 Medication(s) Medication(s): Fentanyl, Heparin, Lidocaine 1%, Nicardipine, Nitroglycerin and Versed Medication(s): Ticagrelor Summary of Findings Indication: Staged PCI of LAD Access: 6 Fr right radial artery Catheters: EBU 3.5 guide Findings: For full details of patient's coronary angiography please see cath report from 11/30/2023. Briefly, patient found to have an acutely occluded proximal OM 2 treated with a single drug-eluting stent. Also noted to have 75% earlymid LAD disease.. Brought back today for staged PCI of LAD. -- PCI -- Antithrombotic therapy: Heparin, ticagrelor Procedure: Left main cannulated with EBU 3.5 guide Pre-procedure flow MERRY 3 [place] blue wire passed across lesion into distal vessel Christie IVUS catheter placed to mid LAD. Pullback revealed ectatic segment just after severe stenosis in mid segment involving D2. No significant disease around takeoff of D1. Remainder of proximal LAD, left main without significant disease. Angiographically ostial D1 stenosis appeared to be only 60% and decision made to just stent LAD. Mid LAD direct stented with 3.5 x 12 mm Xience drug-eluting stent Stent post-dilated with 4.0 noncompliant balloon. Repeat IVUS showed questionable malposition at ectatic distal aspect of stent. Distal aspect of stent further postdilated with 4.5 NC. IC vasodilators administered for spasm Post procedure MERRY 3 flow, stent well expanded with minimal residual stenosis and no apparent cardiac complications. Arterial Closure: TR band Summary: 1. Successful PCI of mid LAD with single drug-eluting stent (3.5 x 12 mm Xience; distal aspect postdilated with 4.5 NC). Recommendations: To PCU for continued monitoring Continue dual-antiplatelet therapy with aspirin, ticagrelor for at least 1 year Continue statin, and ASCVD risk factor modification Consult cardiac Rehab Hemodynamics Rest Ao:: 119/77/95 Final Ao: 112/72/90 LV: -- Recommendations Recommendations: PCI without planned CABG Specimens Specimens: None Radiation Exposure (mGy) 1912 Contrast (mls) 100 Anesthesia Moderate 1539-1796 Procedural Complication(s) None Disposition PCU I attest to the content of the Intraoperative Record and any orders documented therein. Any exceptions are noted below. [facility] Card Cath Procedure Codes Therapeutic Services & Ancillary Procedure 1: Cardiovascular Tx and Anc Procedures: 55670 IV Ultrasound (Coronary or Graft) Moderate Sedation Procedure 1: Sedation/Anesthesia: 00051 Mod Sedation by the same physician;Init15 Min Child Age 5 & Up Procedure 2: Sedation/Anesthesia: 37187 Mod Sedation by the same physician; Ea [id number] Minutes Stenting Procedure 1: Cardiovascular Stent Procedures: 72008 Perc transcatheter placement of intracoronary stent(s), with ang PG Care Time/CCT Total # of Minutes Spent Total Time Spent with Patient: Total time spent is greater than 50% in coordination of care (as documented) at patient's floor/unit and/or counseling patient:
[2023-12-02] MEDS: ACETAMINOPHEN 325 MG TAB PO PRN (19:51)
--- NOTE | 2023-12-02 21:34 | Electrocardiogram Report ---
Test Reason : Blood Pressure : / mmHG Vent. Rate : 070 BPM Atrial Rate : 070 BPM P-R Int : 126 ms QRS Dur : 078 ms QT Int : 418 ms P-R-T Axes : 035 030 086 degrees QTc Int : 451 ms Sinus rhythm with Premature supraventricular complexes and with occasional Premature ventricular comp lexes Low voltage QRS Cannot rule out Anterior infarct (cited on or before 29-NOV-2023) Nonspecific ST abnormality Abnormal ECG When compared with ECG of 29-NOV-2023 12:33, Premature ventricular complexes are now Present Premature supraventricular complexes are now Present Confirmed by Bennie Salas ([id number]) on 12/02/2023 9:34:26 PM Referred By: REFERRED SELF Confirmed By:Bennie Salas
--- NOTE | 2023-12-02 21:48 | Electrocardiogram Report ---
Test Reason : Blood Pressure : / mmHG Vent. Rate : 078 BPM Atrial Rate : 078 BPM P-R Int : 146 ms QRS Dur : 078 ms QT Int : 416 ms P-R-T Axes : 044 023 055 degrees QTc Int : 474 ms Normal sinus rhythm with sinus arrhythmia Cannot rule out Anterior infarct (cited on or before 29-NOV-2023) Nonspecific ST abnormality Abnormal ECG When compared with ECG of 29-NOV-2023 16:40, Premature ventricular complexes are no longer Present Premature supraventricular complexes are no longer Present Nonspecific T wave abnormality no longer evident in Lateral leads Confirmed by Bennie Salas ([id number]) on 12/02/2023 9:48:04 PM Referred By: REFERRED SELF Confirmed By:Bennie Salas
--- NOTE | 2023-12-02 21:49 | Electrocardiogram Report ---
Test Reason : Blood Pressure : / mmHG Vent. Rate : 079 BPM Atrial Rate : 079 BPM P-R Int : 146 ms QRS Dur : 078 ms QT Int : 348 ms P-R-T Axes : 064 045 -38 degrees QTc Int : 399 ms Normal sinus rhythm Low voltage QRS Cannot rule out Anterior infarct (cited on or before 29-NOV-2023) Nonspecific ST and T wave abnormality Abnormal ECG When compared with ECG of 29-NOV-2023 18:16, Nonspecific T wave abnormality now evident in Inferior leads Nonspecific T wave abnormality, worse in Anterolateral leads QT has shortened Confirmed by Bennie Salas ([id number]) on 12/02/2023 9:48:39 PM Referred By: REFERRED SELF Confirmed By:Bennie Salas
--- NOTE | 2023-12-02 21:50 | Electrocardiogram Report ---
Test Reason : Blood Pressure : / mmHG Vent. Rate : 075 BPM Atrial Rate : 075 BPM P-R Int : 134 ms QRS Dur : 078 ms QT Int : 418 ms P-R-T Axes : 035 038 028 degrees QTc Int : 466 ms Normal sinus rhythm with sinus arrhythmia Low voltage QRS Cannot rule out Anterior infarct , age undetermined Nonspecific T wave abnormality Abnormal ECG When compared with ECG of 30-NOV-2023 12:47, Nonspecific T wave abnormality now evident in Inferior leads Confirmed by Bennie Salas ([id number]) on 12/02/2023 9:50:23 PM Referred By: REFERRED SELF Confirmed By:Bennie Salas
--- NOTE | 2023-12-02 21:50 | Electrocardiogram Report ---
Test Reason : Blood Pressure : / mmHG Vent. Rate : 058 BPM Atrial Rate : 058 BPM P-R Int : 146 ms QRS Dur : 076 ms QT Int : 476 ms P-R-T Axes : -09 046 073 degrees QTc Int : 467 ms Sinus bradycardia Low voltage QRS Nonspecific T wave abnormality Abnormal ECG When compared with ECG of 30-NOV-2023 05:14, Nonspecific T wave abnormality no longer evident in Inferior leads Nonspecific T wave abnormality no longer evident in Anterior leads Confirmed by Bennie Salas ([id number]) on 12/02/2023 9:49:43 PM Referred By: REFERRED SELF Confirmed By:Bennie Salas
--- NOTE | 2023-12-03 07:14 | Electrocardiogram Report ---
Test Reason : Blood Pressure : / mmHG Vent. Rate : 071 BPM Atrial Rate : 071 BPM P-R Int : 146 ms QRS Dur : 076 ms QT Int : 424 ms P-R-T Axes : 049 047 117 degrees QTc Int : 460 ms Sinus rhythm with marked sinus arrhythmia Low voltage QRS Nonspecific T wave abnormality Prolonged QT Abnormal ECG When compared with ECG of 01-DEC-2023 05:42, Minimal criteria for Anterior infarct are no longer Present Nonspecific T wave abnormality, worse in Lateral leads Confirmed by Sreedhar Juan ([id number]) on 12/03/2023 7:14:10 AM Referred By: REFERRED SELF Confirmed By:Jarad Juan
[2023-12-03 08:05] LABS: BUN Creatinine Ratio 35.7 (10-20); Calcium 9.6 mg/dl (8.6-10.3); Est GFR (African American) 120.8 ml/min; Est GFR (Non-African American) 104.2 ml/min; Potassium 4.2 mmol/L (3.5-5.1)
--- NOTE | 2023-12-03 12:33 | Cardiology Progress Note ---
<Statement entered by Pastora Joya MD - 12/03/23 19:26> I have reviewed the advanced practitioner's documentation on the date of service referenced in note, and I agree with, and take responsibility for the plan of care. 58-year-old with post PCI of OM2 and mid LAD a small hematoma at the cath site radial pulses are good Patient stable for discharge any worsening swelling hematoma pain in the hand should come back to the emergency room I spent a total of [20] minutes coordinating, documenting, and providing care for this patient excluding time spent in the performance of separately billed services or time spent by another provider. Date of Service December 03, 2023 Assessment & Plan (1) NSTEMI (non-ST elevated myocardial infarction): Plan: 58-year-old female admitted with NSTEMI. November 30, 2023 Coronary Angiography with multivessel disease as follows: LM - normal caliber, no significant disease. LAD - medium caliber, 30% proximal disease, 70 to 80% earlymid segment disease prior to ectatic area before third diagonal. Late middistal vessel without significant disease and wraps around apex. Medium D1 with 80% proximal stenosis. Small D2, D3 without disease. Circumflex -medium caliber, nondominant, 100% acute proximal OM 2. Faint left to left collaterals fills OM2 retrograde RCA - dominant, medium caliber, 20 to 30% mid segment disease, distal vessel without significant disease. Small to medium caliber RPDA without disease. Acute marginal branch with 70% proximal stenosis. Status post PCI of the culprit 100% proximal OM2 on 11/30/2023 with a single drug- eluting stent (2.75 x 18 mm [place]; postdilated with 3.0 NC). Status post PCI of mid LAD on 12/02/2023 with a single drug eluting stent (3.5 x 12 mm Xience; distal aspect postdilated with 4.5 NC). (2) Hyperlipidemia: Plan: * Critically high, total cholesterol 262, LDL 194 mg /dl, similar to outpatient panel performed 04/2023. * Continue atorvastatin 80 mg daily. (3) Tobacco use disorder: Plan: * Pt dedicated to ceasing smoking. (4) Bronchitis: Plan: * viral respiratory panel was negative * Plan * Aspirin 81 mg daily (lifelong therapy) * Brilinta 90 mg twice daily for at least 1 year. * Metoprolol succinate 50 mg daily. * Atorvastatin 80 mg daily * No CARRIE/ARB, borderline BP, LVEF 55-60% * Find a way to become an ex-smoker * Refer for Cardiac Rehabilitation * Outpatient cardiology follow-up with Dr. Lakisha Abel spent a total of 28 minutes on the date of service in preparation, delivery, and documentation of the care provided to this patient excluding any time spent in the performance of separately billed services. This visit was a split-shared visit with the substantive portion of the medical decision making performed by the supervising downstream biomanufacturing technician/billing provider. Admission and Anticipated Discharge Date Admission Date: November 29, 2023 Subjective Patient seen and examined. Chart, medications, and telemetry reviewed. No chest discomfort. No unusual shortness of breath. No palpitations. No concerns/complaints. Telemetry: Sinus with atrial ectopy, heart rates in the 60's to 80's Review of Systems Review of Systems: Complete Review of Systems is as stated above, negative, or noncontributory. Physical Exam Physical Exam: General: A&Ox3. NAD. HENT: Normocephalic. Atraumatic. Eyes: PER. Conjunctiva pink, sclera clear. Neck: No JVD. Heart: RRR. No murmur. Lungs: Diminished. Right sided rhonchi that cleared post cough. No wheeze. Abdomen: +BS. Soft. Nontender. No masses or organomegaly. Extremities: Small hematoma, right wrist. Radial pulses are normal. No clubbing. No cyanosis Limited neurological examination is without focal deficits. Pulses: Posterior tibial=2/4. Results & Data Vital Signs (Past 12 Hours) Vital Signs Temp Pulse Resp BP Pulse Ox O2 Del Method 12/03/23 11:02 36.7 C 80 18 111/72 97 Room Air 12/03/23 07:12 36.3 C L 72 18 113/70 95 Room Air 12/03/23 03:11 36.5 C 69 16 114/73 92 Room Air Laboratory Results Comprehensive Metabolic Panel 12/03/23 Range/Units 06:59 Sodium 135 L (136-145) mmol/L Potassium 4.2 (3.5-5.1) mmol/L Chloride 102 (98-107) mmol/L Carbon Dioxide 23 (21-32) mmol/L BUN 20 (6-23) mg/dl Creatinine 0.56 L (0.6-1.2) mg/dl Glucose 114 H (70-99(Fasting)) mg/dl Calcium 9.6 (8.6-10.3) mg/dl Intake and Output 12/02/23 12/03/23 12/03/23 22:59 06:59 14:59 Intake Total 5003 / 5203 200 / 5203 Balance 5003 / 4603 200 / 4603 Intake: Oral 5003 / 5203 200 / 5203 Other: # Unmeasured Voids 3 2 Weight 87.3 kg Weight Measurement Method Built in [facility]
--- NOTE | 2023-12-03 14:00 | Hospitalist Progress Note ---
Date of Service December 03, 2023 Assessment & Plan (1) NSTEMI (non-ST elevated myocardial infarction): Plan: 58yo F with a PMH of dyslipidemia, tobacco use disorder who presents with burning CP x 3 days. Patient presented with chest pain with radiation to arm and jaw EKG on admission showed NSR with Nonspecific T wave changes Chest CTA with no PE or pericardial effusion High-sensitivity troponin uptrended to 5435. During the hospitalization, Patient underwent left heart cath with PCI of left circumflex on November 30, 2023. She was started on aspirin and Brilinta along with high-dose statin. Patient underwent staged PCI of LAD on December 02, 2023. Patient was monitored throughout the hospitalization on telemetry. She was also started on metoprolol. Patient to follow-up with primary care doctor and cardiology as outpatient julia landry with cardiac rehab. (2) Tobacco use disorder: Plan: Interested in smoking cessation. Discussed in details with patient. Follow-up with PCP (3) Bronchitis: Plan: Viral symptoms last week Resp viral panel t negative Cont PRN nebs, PRN Mucinex (4) Hyperlipidemia: Plan: on lipitor DVT Ppx:SCDs Code status: FULL PCP: [facility] Dispo: Admitted to PCU Please note the above document was generated using voice recognition software. It may contain grammatical, syntax or spelling errors. Any formal questions or concerns about the content, text or information contained within the body of this dictation should be directly addressed to the provider for clarification Admission and Anticipated Discharge Date Admission Date: November 29, 2023 Subjective Patient seen and examined at bedside. She is sitting up on the chair comfortably; not in distress No significant event overnight Review of Systems Review of Systems: All systems reviewed & are unremarkable except as noted in Subjective Physical Exam Physical Exam: Constitutional: WD/WN, vitals as above, NAD, sitting up in bed, pleasant, conversing easily Respiratory: normal respiratory effort, lungs clear to auscultation, no wheeze, rales, rhonchi. Normal insp/exp effort, no accessory muscle use Cardiovascular: RRR, no murmur, no edema Vessels: no JVD or carotid bruit Chest: normal inspection of chest Abdomen: normal bowel sounds, soft, nontender, no hepatosplenomegaly Musculoskeletal: no cyanosis or clubbing, extremities motor strength 5/5 Skin: no rashes, warm and dry normal turgor Neurologic: PERRL, EOMI, accommodation nl, no face palsy, no dysarthria CN's II- XI intact bilaterally and moves all extremities Psychiatric: A+Ox3, euthymic affect Results & Data Results & Data Vital Signs (Past 12 Hours) Vital Signs Temp Pulse Resp BP Pulse Ox O2 Del Method 12/03/23 11:02 36.7 C 80 18 111/72 97 Room Air 12/03/23 07:12 36.3 C L 72 18 113/70 95 Room Air 12/03/23 03:11 36.5 C 69 16 114/73 92 Room Air
--- NOTE | 2023-12-03 14:01 | Discharge Summary ---
Date of Service December 03, 2023 Admission HPI Per Admitting Provider This is a 58yo F with a PMH of dyslipidemia, tobacco use disorder who presents with burning CP x 3 days. Developed cough, congestion and rhinorrhea 6 days ago that felt like a cold. Never had a fever. By Tuesday evening, patient started to have chest wall pain with coughing and felt poorly enough yesterday to leave work. Was instructed to head to [facility] ED but felt too tired and drove home instead, sleeping the rest of the day. When she woke up today, pain was still burning and worse with coughing and laying down flat but also endorsed indigestion and tight components of it as well, prompting her to call EMS. Received full dose aspirin en route to ED. Upon arrival, was given toradol, tylenol pepcid, GI cocktail all at once which completely relieved pain for a few hours. Upon re-evaluation by our service, chest pain had recurred in same location of mid-sternum. + dull headache. Denies fever, chills, lightheadedness, SOB, N/V, abd pain, dysuria, diarrhea or constipation. Breathing has improved since albuterol nebs in ED but denies ever feeling SOB. Mixed hyperlipidemia on outpatient problem list but states she was not instructed to start atorvastatin listed on her med list. Smokes 1 ppd cigarettes. Admission Exam Per Admitting Provider General Appearance: WD/WN, vitals as above, NAD, sitting up in bed, pleasant, conversing easily Head: normocephalic, atraumatic Eyes: normal inspection, PERRL, conjunctivae normal, anicteric sclerae ENT: external ear and nose normal, oropharynx normal Neck: normal visual inspection, trachea midline, no thyromegaly Respiratory: normal respiratory effort, lungs clear to auscultation, no wheeze, rales, rhonchi. No accessory muscle use Cardiovascular: regular rate, rhythm, no murmur or rub noted, normal peripheral pulses, no BLE edema. Vessels: no JVD Chest: normal inspection of chest Abdomen/GI: normal bowel sounds, soft, nontender, no hepatosplenomegaly Extremities/Musculoskeletal: no cyanosis or clubbing, extremities motor strength 5/5 Neurologic: PERRL, EOMI, accommodation nl, no face palsy, no dysarthria, CN's II-XI intact bilaterally and moves all extremities Psychiatric: A+Ox3, + tearful Skin: no rashes, normal color, warm/dry Principal Diagnosis NSTEMI status post PCI of proximal OM2 artery and LAD Discharge Exam Constitutional: WD/WN, vitals as above, NAD, sitting up in bed, pleasant, conversing easily Respiratory: normal respiratory effort, lungs clear to auscultation, no wheeze, rales, rhonchi. Normal insp/exp effort, no accessory muscle use Cardiovascular: RRR, no murmur, no edema Vessels: no JVD or carotid bruit Chest: normal inspection of chest Abdomen: normal bowel sounds, soft, nontender, no hepatosplenomegaly Musculoskeletal: no cyanosis or clubbing, extremities motor strength 5/5 Skin: no rashes, warm and dry normal turgor Neurologic: PERRL, EOMI, accommodation nl, no face palsy, no dysarthria CN's II- XI intact bilaterally and moves all extremities Psychiatric: A+Ox3, euthymic affect Discharge Data Allergies Allergy/AdvReac Type Severity Reaction Status Date / Time No Known Allergies Allergy Verified 11/29/23 15:19 Consultations 11/29/23 16:47 ED Decision to Admit Stat 11/29/23 18:41 Consult Cardiology Routine Procedures Performed Operation Date: 12/02/23 13:00 Actual Procedures p Cineradiography w/Routine Exam - Sreedhar Lee MD p Drug Eluting Stent SGl Vessel - Sreedhar Lee MD p IVUS Coronary Single Vessel - Sreedahr Lee MD Ordered Studies 11/29/23 13:32 CT angio chest PE protocol Stat 11/29/23 18:47 CT head/brain wo con Stat 11/30/23 10:23 CL Cath Imgs for PACS use only Stat 12/02/23 06:40 CL Cath Imgs for PACS use only Routine 12/02/23 17:07 CL IVUS Coronary Single Vessel Routine Hospital Course (1) NSTEMI (non-ST elevated myocardial infarction): 58yo F with a PMH of dyslipidemia, tobacco use disorder who presents with burning CP x 3 days. Patient presented with chest pain with radiation to arm and jaw EKG on admission showed NSR with Nonspecific T wave changes Chest CTA with no PE or pericardial effusion High-sensitivity troponin uptrended to 5435. During the hospitalization, Patient underwent left heart cath with PCI of proximal OM2 artery on November 30, 2023. She was started on aspirin and Brilinta along with high-dose statin. Patient underwent staged PCI of LAD on December 02, 2023. Patient was monitored throughout the hospitalization on telemetry. She was also started on metoprolol. Patient to follow-up with primary care doctor and cardiology as outpatient along with cardiac rehab. (2) Tobacco use disorder: Interested in smoking cessation. Discussed in details with patient. Follow-up with PCP (3) Bronchitis: Viral symptoms last week Resp viral panel t negative Cont PRN nebs, PRN Mucinex (4) Hyperlipidemia: Continue on lipitor at discharge Please note the above document was generated using voice recognition software. It may contain grammatical, syntax or spelling errors. Any formal questions or concerns about the content, text or information contained within the body of this dictation should be directly addressed to the provider for clarification Total Time Total Time Spent Total Time Spent (In Minutes): 45 Total Time Includes: Examination of the Patient, Discharge Planning, Medication Reconciliation, Communication With Other Providers and Other Discharge Plan Discharge Items Patient Disposition: Home - Self-Care Reason For Visit: PERICARDITIS Discharge Diagnosis: NSTEMI (non-ST elevated myocardial infarction) Status post PCI of left circumflex and LAD Activity: Resume your previous activity Non-emergency contact: Primary Care Provider Call non-emergency contact if: you have any medication questions and your symptoms worsen Follow-up/Referrals: Diego Teixeira M.D. [Outside Practitioners] - (Date & Time 12/08/2023 2:20 PM Provider Diego Teixeira MD Department Family Practice [facility] ) Anaid Alfaro PA-C [Physician Cattle Sticker] - (Date & Time 01/02/2024 10:30 AM Provider Anaid Alfaro PA-C Department Cardiology, [facility] ) Diet: Regular Addtl Attending Provider Instructions: You were admitted to the hospital due to chest pain. You are treated with stents in 2 of your heart vessels (left. Circumflex artery and left anterior descending artery). You are recommended to be on following medications by the pole truck driver: 1) Aspirin 81 mg once a day 2) Brilinta 90 mg twice a day. You need to take Brilinta for at least 1 year. 3) Lipitor 80 mg once a day 4) metoprolol tartrate 25 mg twice a day Please follow-up with your primary care doctor as scheduled Pending Studies at Discharge: No Stand-Alone Forms: [facility], Smoking Cessation Medications and DC Order Prescriptions: New aspirin [Children's Aspirin] 81 mg Tablet,Chewable 81 mg PO DAILY Qty: 60 0RF metoprolol tartrate 25 mg Tablet 25 mg PO BID Qty: 60 0RF Brilinta 90 mg Tablet 90 mg PO BID Qty: 60 0RF atorvastatin [Lipitor] 80 mg tablet 80 mg PO DAILY Qty: 60 0RF Continued acetaminophen [Tylenol Extra Strength] 500 mg Tablet 1,000 mg PO Q6H PRN (Reason: Pain) Discontinued tizanidine 2 mg Tablet 2 mg PO DIRECTED PRN (Reason: MUSCLE SPASMS) naproxen sodium [Aleve] 220 mg Tablet 220 mg PO Q8H PRN (Reason: Pain) ibuprofen 200 mg Tablet 600 - 800 mg PO Q6H PRN (Reason: Pain) Discharge Orders: Discharge Order (Routine); Ordered 12/03/23 Ordered By: Yohan Rand/Other Patient Handouts: Prediabetes, 5 Steps for Eating Healthier Admission Data Admit Date/Time: 11/29/23 17:19 Attending Provider: Yohan Segura Admit Provider: Devonte Hill Primary Care Provider: PCP,NO Other Providers: Devonte Hill; Stephen Banuelos Other Interventions: Discharge Summary Assessment (RN) Last Done: 12/03/23 15:30
== END 2023-12-03 16:54 | disposition home or self-care (01) | DRG 322 ==
LOC: ED 12:25 → 2S 17:19 → SUATTDRO 17:19 → 2S 20:36